=== PATIENT | male | born 1960 | race Two or more races ===

== ENCOUNTER → 2019-06-21 | Outpatient (CLI) | payer OTHER | END | disposition home or self-care (01) | LOC: LABWHC1 10:05 | PROVIDERS: ATTEND Internal Medicine Gastroenterology | DX: K51.30 Ulcerative (chronic) rectosigmoiditis without complications (principal) | CPT/HCPCS: 36415; 86480 ==

== ENCOUNTER → 2020-02-27 | Outpatient (CLI) | payer OTHER ==
[2020-02-27 10:41] LABS: Anisocytosis Slight; Basophils % (A) 0 %; Eosinophils # (A) 0.3 k/uL (0-0.7); Eosinophils % (A) 3 %; HCT 40.8 % (39.0-53.0); HGB 12.8 gm/dL (13.0-17.5); Hypochromasia Slight; Lymphocytes # (A) 1.6 k/uL (1.0-4.8); Lymphocytes % (A) 18 %; MCH 28.6 pg (25.0-35.0); MCHC 31.5 g/dL (31.0-37.0); MCV 90.9 fL (80.0-100.0); Mean Platelet Volume 7.1; Monocytes # (A) 0.6 k/uL (0-1.0); Monocytes % (A) 6 %; Neutrophils # (A) 6.3 k/uL (1.3-7.7); Neutrophils % (A) 70 %; Platelet Count 337 k/uL (150-450); RBC 4.49 m/uL (4.30-5.90); RDW 17.6 % (11.5-15.5)
[2020-02-27 13:25] LABS: Erythrocyte Sedimentation Rate 11 mm/hr (0-15)
[2020-02-27 15:30] LABS: % Iron Saturation 17.06 (15.00-50.00); African American GFR (CKD) 83.5 (60.0-200.0); Albumin 3.9 g/dL (3.80-4.90); Albumin/Globulin Ratio 1.95 (1.60-3.17); BUN/Creat Ratio 20.91 Ratio (12.00-20.00); C Reactive Protein 0.5 mg/dL (0.0-0.8); Calcium 9.4 mg/dL (8.7-10.3); Non-African American GFR(CKD) 72.1 (60.0-200.0); Potassium 4.6 mmol/L (3.5-5.5); Total Bilirubin 0.5 mg/dL (0.3-1.2); Total Protein 5.9 g/dL (6.2-8.2)
== END | disposition home or self-care (01) ==
LOC: LABWHC1 08:41
PROVIDERS: ATTEND Nurse Practitioner
DX: K51.30 Ulcerative (chronic) rectosigmoiditis without complications (principal); D50.9 Iron deficiency anemia, unspecified
CPT/HCPCS: 36415; 80053; 83540; 83550; 85025; 85652; 86140

== ENCOUNTER → 2023-05-08 | Outpatient (CLI) | payer OTHER ==
[2023-05-08 21:53] LABS: Basophils # (A) 0.05 X 10*3/uL (0.00-0.10); Basophils % (A) 0.9 %; Eosinophils # (A) 0.23 X 10*3/uL (0.04-0.35); HCT 42.5 % (39.6-50.0); HGB 14.2 d/dL (13.0-17.0); Lymphocytes # (A) 1.41 X 10*3/uL (0.90-5.00); Lymphocytes % (A) 24.7 %; MCH 31.5 pg (27.0-32.0); MCHC 33.4 d/dL (32.0-37.0); MCV 94.2 FL (80.0-97.0); Monocytes # (A) 0.56 X 10*3/uL (0.20-1.00); Monocytes % (A) 9.8 %; NRBC Per 100 WBC 0 X 10*3/uL (0.00-0.01); Neutrophils # (A) 3.44 X 10*3/uL (1.80-7.70); Neutrophils % (A) 60.1 %; Platelet Count 288 X 10*3/uL (140-440); RBC 4.51 X 10*6/uL (4.40-5.60); WBC 5.72 X 10*3/uL (4.50-10.00)
[2023-05-08 22:03] LABS: ALT 25 U/L (10-49); AST 22 U/L (14-35); Albumin 4.6 d/dL (3.8-4.9); Alkaline Phosphatase 105 U/L (41-126); BUN/Creat Ratio 15.08 Ratio (12.00-20.00); Blood Urea Nitrogen 19.6 mg/dL (9.0-27.0); Calcium 9.8 mg/dL (8.7-10.3); Carbon Dioxide 24.3 mmol/L (21.6-31.8); Chloride 108 mmol/L (96-109); Globulin 2.3 d/dL (1.6-3.3); Glucose 89 mg/dL (70-110); Potassium 4.8 mmol/L (3.5-5.5); Sodium 143 mmol/L (135-145); Total Bilirubin 0.2 mg/dL (0.3-1.2); Total Protein 6.9 d/dL (6.2-8.2)
== END | disposition home or self-care (01) ==
LOC: LABWHC1 15:21
PROVIDERS: ATTEND Internal Medicine Gastroenterology
DX: K51.30 Ulcerative (chronic) rectosigmoiditis without complications (principal)
CPT/HCPCS: 36415; 80053; 85025

== ENCOUNTER → 2023-10-24 | Outpatient (CLI) | payer OTHER ==
[2023-10-24 18:53] LABS: HCT 44.7 % (39.6-50.0); HGB 14.8 g/dL (13.0-17.0); MCH 30.1 pg (27.0-32.0); MCHC 33.1 g/dL (32.0-37.0); MCV 90.9 FL (80.0-97.0); Mean Platelet Volume 9.6 FL (9.5-12.2); NRBC Per 100 WBC 0 X 10*3/uL (0.00-0.01); Platelet Count 299 X 10*3/uL (140-440); RBC 4.92 X 10*6/uL (4.40-5.60); RDW 13.9 % (11.5-14.5)
[2023-10-24 18:54] LABS: Basophils # (A) 0.03 X 10*3/uL (0.00-0.10); Basophils % (A) 0.5 %; Eosinophils # (A) 0.11 X 10*3/uL (0.04-0.35); Eosinophils % (A) 1.9 %; Lymphocytes % (A) 29.3 %; Monocytes # (A) 0.47 X 10*3/uL (0.20-1.00); Monocytes % (A) 8.1 %; Neutrophils # (A) 3.47 X 10*3/uL (1.80-7.70); Neutrophils % (A) 59.9 %
[2023-10-24 19:09] LABS: ALT 25 U/L (10-49); AST 20 U/L (14-35); Albumin 4.4 g/dL (3.8-4.9); Albumin/Globulin Ratio 1.91 Ratio (1.60-3.17); Alkaline Phosphatase 90 U/L (41-126); Blood Urea Nitrogen 20.3 mg/dL (9.0-27.0); Calcium 9.6 mg/dL (8.7-10.3); Carbon Dioxide 23.9 mmol/L (21.6-31.8); Chloride 105 mmol/L (96-109); Globulin 2.3 g/dL (1.6-3.3); Glucose 139 mg/dL (70-110); Potassium 4.5 mmol/L (3.5-5.5); Sodium 142 mmol/L (135-145); Total Bilirubin 0.3 mg/dL (0.3-1.2); Total Protein 6.7 g/dL (6.2-8.2)
== END | disposition home or self-care (01) ==
LOC: LABWHC1 13:12
PROVIDERS: ATTEND Internal Medicine Gastroenterology
DX: K51.30 Ulcerative (chronic) rectosigmoiditis without complications (principal)
CPT/HCPCS: 36415; 80053; 85025

== ENCOUNTER → 2024-04-28 | Outpatient (CLI) | payer MEDICARE ==
[2024-04-28 16:00] LABS: ALT 34 U/L (10-49); AST 26 U/L (14-35); Albumin 4.3 g/dL (3.8-4.9); Albumin/Globulin Ratio 1.87 Ratio (1.60-3.17); Alkaline Phosphatase 119 U/L (41-126); BUN/Creat Ratio 12.29 Ratio (12.00-20.00); Blood Urea Nitrogen 17.2 mg/dL (9.0-27.0); Calcium 9.6 mg/dL (8.7-10.3); Carbon Dioxide 20.4 mmol/L (21.6-31.8); Chloride 109 mmol/L (96-109); Globulin 2.3 g/dL (1.6-3.3); Glucose 110 mg/dL (70-110); Potassium 4.8 mmol/L (3.5-5.5); Sodium 141 mmol/L (135-145); Total Bilirubin 0.2 mg/dL (0.3-1.2); Total Protein 6.6 g/dL (6.2-8.2)
[2024-04-28 16:20] LABS: HCT 46.8 % (39.6-50.0); HGB 15.6 g/dL (13.0-17.0); MCH 30.2 pg (27.0-32.0); MCHC 33.3 g/dL (32.0-37.0); MCV 90.7 FL (80.0-97.0); NRBC Per 100 WBC 0 X 10*3/uL (0.00-0.01); Platelet Count 292 X 10*3/uL (140-440); RBC 5.16 X 10*6/uL (4.40-5.60); RDW 13.4 % (11.5-14.5); WBC 5.98 X 10*3/uL (4.50-10.00)
[2024-04-28 16:21] LABS: Basophils # (A) 0.05 X 10*3/uL (0.00-0.10); Basophils % (A) 0.8 %; Eosinophils % (A) 1.7 %; Lymphocytes # (A) 1.37 X 10*3/uL (0.90-5.00); Lymphocytes % (A) 22.9 %; Monocytes # (A) 0.52 X 10*3/uL (0.20-1.00); Monocytes % (A) 8.7 %; Neutrophils % (A) 65.2 %
== END | disposition home or self-care (01) ==
LOC: LABWHC1 11:12
PROVIDERS: ATTEND Nurse Practitioner Family
DX: K51.30 Ulcerative (chronic) rectosigmoiditis without complications (principal)
CPT/HCPCS: 36415; 80053; 85025

== ENCOUNTER → 2024-05-02 | Outpatient (CLI) | payer MEDICARE ==
[~2024-05-02] MED LIST: REGADENOSON 0.4 MG/5 ML SYRINGE IV PRN
--- NOTE | 2024-05-02 10:42 | CA ---
Lexiscan Nuclear Stress Test Report Name: Sherif Crane Exam Date: 05/02/2024 09:30 Exam Location: [place] Stress Ht (in): 66 Wt (lb): 210 BSA: 2.04 Ordering Phys: Mitch Melendez MD Referring Phys: ANGELA, Technologist: Chuck Lui Age: 63 Gender: M : 1960 Procedure CPT: Indications: I20.89 OTHER FORMS OF ANGINA PECTORIS ICD-10 Codes: Patient History: CHEST PAIN, DIFFICULTY IN BREATHING, PALPITATIONS, HTN, HYPERCHOLESTEROLEMIA, FAMILY HX OF HEART DISEASE, PRIOR SMOKER, ASTHMA Medications: Meds past 24 hrs: Pretest Chest Pain: STRESS TEST Lexiscan Protocol Exercise Duration (min:sec): 01:[address] Depressions (mm): Angina Score: Mendoza Score: Resting HR (bpm): 77 Peak HR (bpm): 105 Resting BP (mmHg): 142 / 94 Peak BP (mmHg): 142 / 94 MPHR: 155 Target HR: 132 % MPHR: 68 METS: 1.0 Total Dose: Peak Dose: Atropine: Double Product: 16331 BP Response: Stress Termination: INFUSION COMPLETE Stress Symptoms: CHEST PAIN CHEST PAIN RESOLVED IN RECOVERY Stress Summary: ECG ANALYSIS Resting ECG: Normal sinus rhythm normal axis normal intervals Stress ECG: Patient was given intravenous Lexiscan as a protocol did not have chest pain or diagnostic ST segment depression CONCLUSIONS Negative stress test by EKG criteria Cardiolite portion of the stress test will be reported separately Dr. Cam Pompa MD (Electronically Signed) Final Date: 02 May 2024 10:41
--- NOTE | 2024-05-02 12:27 | NM ---
EXAMINATION TYPE: NM stress lexiscan cardiolite DATE OF EXAM: 05/02/2024 COMPARISON: NONE CLINICAL INDICATION: Male, 63 years old with history of I20.89 OTHER FORMS OF ANGINA PECTORIS; TECHNIQUE: After the intravenous administration of 9.6 mCi Tc 99m Sestamibi - Cardiolite resting SPE CT images acquired 80 minutes post injection. The patient received 0.4mg Lexiscan, 25.9 mCi Tc 99m Sestamibi - Stress images obtained [address] injection FINDINGS: Review of stress and rest SPECT images demonstrates no distinct perfusion abnormality. Small rest de fect noted apical anterior wall. Gated analysis shows normal wall motion with an estimated left ventr icular ejection fraction of 66 %. IMPRESSION: No scintigraphic evidence for reversible ischemia.
== END | disposition home or self-care (01) ==
LOC: RADNMMAIN 07:49
PROVIDERS: ATTEND Family Medicine
DX: I20.89 Other forms of angina pectoris (principal); I35.0 Nonrheumatic aortic (valve) stenosis
CPT/HCPCS: 93017; 78452; A9500; J2785

== ENCOUNTER 2024-07-15 05:53 | Inpatient (IN) | payer MEDICARE ==
[2024-07-15] MEDS: SODIUM CHLORIDE 0.9% 1,000 ML IV STA (06:22)
[2024-07-15] MEDS: KETOROLAC 15 MG/ML 1 ML VIAL IVP STA (06:23)
[2024-07-15] MEDS: ONDANSETRON 4 MG/2 ML VIAL IVP STA (06:23)
[2024-07-15] MEDS: HYDROmorphone 1 MG/ML 1 ML SYRINGE IVP STA ×2 (06:25→09:04)
--- NOTE | 2024-07-15 06:44 | ED ---
Abdominal Pain HPI - General Chief Complaint: Abdominal Pain Stated Complaint: Abdominal Pain, NVD Time Seen by Provider: 07/15/24 05:59 Source: patient, EMS, RN notes reviewed Mode of arrival: EMS Limitations: no limitations - History of Present Illness Initial Comments: This is a 63-year-old male who presents to the emergency department for abdominal pain. Reports mid to lower abdominal pain with nausea and vomiting beginning yesterday. He has some radiation of pain into the back. Reports some difficulty with urination. Denies any diarrhea or constipation. He had similar pain a year ago and was diagnosed with pancreatitis at [facility]. States that they incidentally found a blood clot near his pancreas at that time. States that he had been fine since then up until now. Unsure if he is experiencing the same thing or not. Denies any fevers or chills. He was given Zofran by EMS en route with some improvement in nausea, but states that the pain is still severe. MD Complaint: abdominal pain - Related Data Home Medications Medication Instructions Recorded Confirmed Albuterol Sulfate [Albuterol 2 puff INHALATION RT-BID 07/15/24 07/15/24 Sulfate Hfa] Ascorbic Acid [Vitamin C] 500 mg PO DAILY 07/15/24 07/15/24 Aspirin [Blair Aspirin EC] 81 mg PO DAILY 07/15/24 07/15/24 Famotidine [Pepcid] 20 - 40 mg PO DAILY 07/15/24 07/15/24 Losartan [Cozaar] 25 mg PO DAILY 07/15/24 07/15/24 Magnesium Oxide [Magnesium] 500 mg PO DAILY 07/15/24 07/15/24 Multivitamins, Thera [Multivitamin 1 tab PO DAILY 07/15/24 07/15/24 (formulary)] Rosuvastatin [Crestor] 10 mg PO DAILY 07/15/24 07/15/24 azaTHIOprine [Imuran] 100 mg PO DAILY 07/15/24 07/15/24 Allergies Allergy/AdvReac Type Severity Reaction Status Date / Time No Known Allergies Allergy Unverified 05/02/24 08:50 Review of Systems ROS Statement: Those systems with pertinent positive or pertinent negative responses have been documented in the HPI. ROS Other: All systems not noted in ROS Statement are negative. Past Medical History Past Medical History: Asthma, Hypertension History of Any Multi-Drug Resistant Organisms: None Reported Past Psychological History: No Psychological Hx Reported Smoking Status: Former smoker Past Alcohol Use History: None Reported Past Drug Use History: None Reported General Exam Limitations: no limitations General appearance: alert, in no apparent distress Head exam: Present: atraumatic, normocephalic, normal inspection Respiratory exam: Present: normal lung sounds bilaterally. Absent: respiratory distress, wheezes, rales, rhonchi, stridor Cardiovascular Exam: Present: regular rate, normal rhythm, normal heart sounds. Absent: systolic murmur, diastolic murmur, rubs, gallop, clicks GI/Abdominal exam: Present: soft, tenderness (diffuse), normal bowel sounds. Absent: distended Neurological exam: Present: alert, oriented X3, CN II-XII intact Psychiatric exam: Present: normal affect, normal mood Skin exam: Present: warm, dry, intact, normal color. Absent: rash Course Vital Signs 07/15/24 07/15/24 07/15/24 05:56 07:04 09:03 Temperature 98.7 F Pulse Rate 78 95 98 Respiratory 18 18 20 Rate Blood Pressure 172/137 158/97 157/101 O2 Sat by Pulse 98 96 94 L Oximetry Medical Decision Making - Medical Decision Making This is a 63 year old male who presents to the emergency department for abdominal pain. Was pt. sent in by a medical professional or institution? @ -No Did you speak to anyone other than the patient for history? @ -No Did you review nursing and triage notes? @ -Yes, and I agree, it is accurate with regards to the patient's symptoms. Were old charts reviewed? @ -No Differential Diagnosis? @ -Differential Abdominal Pain Men: Appendicitis, cholecystitis, diverticulosis, ischemic bowel, pancreatitis, hepatitis, UTI, gastroenteritis, AAA, incarcerated hernia, bowel obstruction, constipation, inflammatory bowel, hepatitis, peptic ulcer disease, splenic infarction, perforated viscus, testicular torsion, this is not meant to be an all-inclusive list EKG interpreted by me (3pts min.)? @ -EKG interpreted by me demonstrating the following: Sinus rhythm. Ventricular rate 77 bpm, ID interval 187 ms, QRS duration 89 ms, QTc 389 ms. X-rays interpreted by me (1pt min.)? @ -Not obtained CT interpreted by me (1pt min.)? @ -CT scan of the abdomen and pelvis obtained. My interpretation identifies edema of the pancreas. U/S interpreted by me (1pt. min.)? @ -Gallbladder ultrasound obtained. My interpretation identifies cholelithiasis. What testing was considered but not performed? (CT, X-rays, U/S, labs)? Why? @ -None What meds were considered but not given? Why? @ -None Did you discuss the management of the patient with other professionals? @ -Yes, Dr. Melendez, who accepts the patient for admission Did you reconcile home meds? @ -Yes Was smoking cessation discussed for >3mins.? @ -No Was critical care preformed (if so, how long)? @ -No Were there social determinants of health that impacted care today? How? (Homelessness, low income, unemployed, alcoholism, drug addiction, transportation, low edu. Level, literacy, decrease access to med. care, [facility], rehab)? @ -No Was there de-escalation of care discussed even if they declined? (Discuss DNR or withdrawal of care, Hospice)? @ -No What co-morbidities impacted this encounter? (DM, HTN, Smoking, COPD, CAD, Cancer, CVA, Hep., AIDS, mental health diagnosis, sleep apnea, morbid obesity)? @ -HTN Was patient admitted / discharged? @ -Admitted. Lab work demonstrates elevated LFTs with a bilirubin of 1.7, AST of 371, ALT of 425, and AST of 347. Lab work also consistent with pancreatitis [place] amyl[place] [address] [place] [address] scan of the abdomen and pelvis demonstrates edema of the pancreas with peripancreatic stranding compatible with acute pancreatitis. There is also a focal calcification within the transverse duodenum that could reflect a recently passed gallstone. Due to possibility for gallstone pancreatitis, gallbladder ultrasound was obtained for further evaluation. Gallbladder ultrasound demonstrates cholelithiasis with hepatic steatosis. The common bile duct could not be measured. There is no gallbladder wall thickening or pericholecystic fluid noted. Presentation concerning for gallstone pancreatitis at this point. Patient admitted to medicine for gallstone pancreatitis. Consult placed for GI and general surgery. Maintenance fluids initiated and patient kept NPO. Case discussed with ED attending Dr. Baer. Undiagnosed new problem with uncertain prognosis? @ -None Drug Therapy requiring intensive monitoring for toxicity (Heparin, Nitro, Insulin, Cardizem)? @ -None Were any procedures done? @ -None Diagnosis/symptom? @ -Gallstone pancreatitis Acute, or Chronic, or Acute on Chronic? @ -Acute Uncomplicated (without systemic symptoms) or Complicated (systemic symptoms)? @ -Complicated Side effects of treatment? @ -None Exacerbation, Progression, or Severe Exacerbation] @ -Not applicable Poses a threat to life or bodily function? @ -Yes, can become life-threatening - Lab Data Result diagrams: 07/15/24 06:38 07/15/24 06:38 Lab Results 07/15/24 07/15/24 07/15/24 Range/Units 06:38 06:38 06:38 WBC 9.6 (3.8-10.6) k/uL RBC 4.91 (4.30-5.90) m/uL Hgb 15.1 (13.0-17.5) gm/dL Hct 45.1 (39.0-53.0) % MCV 91.9 (80.0-100.0) fL MCH 30.8 (25.0-35.0) pg MCHC 33.5 (31.0-37.0) g/dL RDW 15.7 H (11.5-15.5) % Plt Count 307 (150-450) k/uL MPV 7.5 Neutrophils % 90 % Lymphocytes % 5 % Monocytes % 3 % Eosinophils % 0 % Basophils % 0 % Neutrophils # 8.7 H (1.3-7.7) k/uL Lymphocytes # 0.5 L (1.0-4.8) k/uL Monocytes # 0.3 (0-1.0) k/uL Eosinophils # 0.0 (0-0.7) k/uL Basophils # 0.0 (0-0.2) k/uL Sodium 137 (137-145) mmol/L Potassium 4.7 (3.5-5.1) mmol/L Chloride 109 H (98-107) mmol/L Carbon Dioxide 21 L (22-30) mmol/L Anion Gap 7 mmol/L BUN 22 H (9-20) mg/dL Creatinine 0.99 (0.66-1.25) mg/dL Est GFR (CKD-EPI)AfAm >90 (>60 ml/min/1.73 sqM) Est GFR (CKD-EPI)NonAf 80 (>60 ml/min/1.73 sqM) Glucose 180 H (74-99) mg/dL Plasma Lactic Acid Srikanth 1.3 (0.7-2.0) mmol/L Calcium 9.4 (8.4-10.2) mg/dL Magnesium 1.8 (1.6-2.3) mg/dL Total Bilirubin 1.7 H (0.2-1.3) mg/dL AST 371 H (17-59) U/L ALT 425 H (4-49) U/L Alkaline Phosphatase 347 H (38-126) U/L Total Protein 6.8 (6.3-8.2) g/dL Albumin 4.1 (3.5-5.0) g/dL Amylase 2289 H* (30-110) U/L Lipase 44561 H (23-300) U/L Urine Color Urine Appearance (Clear) Urine pH (5.0-8.0) Ur Specific [place] (1.001-1.035) Urine Protein (Negative) Urine Glucose (UA) (Negative) Urine Ketones (Negative) Urine Blood (Negative) Urine Nitrite (Negative) Urine Bilirubin (Negative) Urine Urobilinogen (<2.0) mg/dL Ur Leukocyte Esterase (Negative) 07/15/24 Range/Units 08:34 WBC (3.8-10.6) k/uL RBC (4.30-5.90) m/uL Hgb (13.0-17.5) gm/dL Hct (39.0-53.0) % MCV (80.0-100.0) fL MCH (25.0-35.0) pg MCHC (31.0-37.0) g/dL RDW (11.5-15.5) % Plt Count (150-450) k/uL MPV Neutrophils % % Lymphocytes % % Monocytes % % Eosinophils % % Basophils % % Neutrophils # (1.3-7.7) k/uL Lymphocytes # (1.0-4.8) k/uL Monocytes # (0-1.0) k/uL Eosinophils # (0-0.7) k/uL Basophils # (0-0.2) k/uL Sodium (137-145) mmol/L Potassium (3.5-5.1) mmol/L Chloride (98-107) mmol/L Carbon Dioxide (22-30) mmol/L Anion Gap mmol/L BUN (9-20) mg/dL Creatinine (0.66-1.25) mg/dL Est GFR (CKD-EPI)AfAm (>60 ml/min/1.73 sqM) Est GFR (CKD-EPI)NonAf (>60 ml/min/1.73 sqM) Glucose (74-99) mg/dL Plasma Lactic Acid Srikanth (0.7-2.0) mmol/L Calcium (8.4-10.2) mg/dL Magnesium (1.6-2.3) mg/dL Total Bilirubin (0.2-1.3) mg/dL AST (17-59) U/L ALT (4-49) U/L Alkaline Phosphatase (38-126) U/L Total Protein (6.3-8.2) g/dL Albumin (3.5-5.0) g/dL Amylase (30-110) U/L Lipase (23-300) U/L Urine Color Yellow Urine Appearance Clear (Clear) Urine pH 6.5 (5.0-8.0) Ur Specific [place] 1.037 H (1.001-1.035) Urine Protein Trace H (Negative) Urine Glucose (UA) Negative (Negative) Urine Ketones 1+ H (Negative) Urine Blood Negative (Negative) Urine Nitrite Negative (Negative) Urine Bilirubin Negative (Negative) Urine Urobilinogen <2.0 (<2.0) mg/dL Ur Leukocyte Esterase Negative (Negative) - Radiology Data Radiology results: report reviewed, image reviewed Disposition Clinical Impression: Gallstone pancreatitis Dis[facility] Referrals: Mitch Melendez MD [Primary Care Provider] - 1-2 days
[2024-07-15 06:53] LABS: Basophils % (A) 0 %; Eosinophils % (A) 0 %; HCT 45.1 % (39.0-53.0); HGB 15.1 gm/dL (13.0-17.5); Lymphocytes # (A) 0.5 k/uL (1.0-4.8); Lymphocytes % (A) 5 %; MCH 30.8 pg (25.0-35.0); MCHC 33.5 g/dL (31.0-37.0); MCV 91.9 fL (80.0-100.0); Mean Platelet Volume 7.5; Monocytes # (A) 0.3 k/uL (0-1.0); Monocytes % (A) 3 %; Neutrophils # (A) 8.7 k/uL (1.3-7.7); Neutrophils % (A) 90 %; Platelet Count 307 k/uL (150-450); RBC 4.91 m/uL (4.30-5.90); RDW 15.7 % (11.5-15.5); WBC 9.6 k/uL (3.8-10.6)
[2024-07-15 07:14] LABS: ALT 425 U/L (4-49); African American GFR (CKD) >90 (>60 ml/min/1.73 sqM); Albumin 4.1 g/dL (3.5-5.0); Anion Gap 7 mmol/L; Blood Urea Nitrogen 22 mg/dL (9-20); Calcium 9.4 mg/dL (8.4-10.2); Carbon Dioxide 21 mmol/L (22-30); Chloride 109 mmol/L (98-107); Glucose 180 mg/dL (74-99); Magnesium 1.8 mg/dL (1.6-2.3); Non-African American GFR(CKD) 80 (>60 ml/min/1.73 sqM); Sodium 137 mmol/L (137-145); Total Bilirubin 1.7 mg/dL (0.2-1.3); Total Protein 6.8 g/dL (6.3-8.2)
[2024-07-15 07:50] LABS: AST 371 U/L (17-59); Alkaline Phosphatase 347 U/L (38-126); Amylase 2289 U/L (30-110); Potassium 4.7 mmol/L (3.5-5.1)
[2024-07-15 08:01] LABS: Lipase 16378 U/L (23-300)
--- NOTE | 2024-07-15 08:42 | CT ---
EXAMINATION TYPE: CT abdomen pelvis w con DATE OF EXAM: 07/15/2024 COMPARISON: None HISTORY: pain, nausea and vomiting, pt states history of pancreatitis CT DLP: 1433.7 mGycm CONTRAST: CT scan of the abdomen and pelvis is performed without Oral Contrast and with IV Contrast, patient in jected with 100 mL of Isovue 370. FINDINGS: LUNG BASES-: No visible nodule. No infiltrate. LIVER/GB: Small noncalcified gallstones. Hepatic steatosis. No space occupying hepatic lesion. Sumeet iary tree is of normal caliber. PANCREAS: There is edema of the pancreas with peripancreatic stranding compatible with acute pancreat itis. There is focal calcification within the transverse duodenum seen on image 42 which could reflec t a recently passed calcified gallstone. No evidence for pseudocyst. SPLEEN: No splenic enlargement. No lesion seen. ADRENALS: No nodule. No thickening. KIDNEYS/BLADDER: No hydronephrosis. No nephrolithiasis. No distinct renal mass. Urinary bladder g rossly unremarkable. BOWEL: Normal appendix. Normal bowel caliber. No inflammation. GENITAL ORGANS: No gross abnormality. LYMPH NODES: No greater than 1cm abdominal or pelvic lymph nodes are appreciated. AORTA: No significant abnormality. OSSEOUS STRUCTURES: No significant abnormality is seen. OTHER: No significant additional abnormality is seen. IMPRESSION: 1. There is edema of the pancreas with peripancreatic stranding compatible with acute pancreatitis. T here is focal calcification within the transverse duodenum seen on image 42 which could reflect a rec ently passed calcified gallstone. [facility], , 07/15/2024 8:39 AM
[2024-07-15 08:47] LABS: Appearance,Urine Clear (Clear); Bilirubin,Urine Negative (Negative); Blood,Urine Negative (Negative); Color,Urine Yellow; Glucose,Urine (UA) Negative (Negative); Ketones,Urine 1+ (Negative); Leukocyte Esterase,Urine Negative (Negative); Nitrite,Urine Negative (Negative); PH, Urine 6.5 (5.0-8.0); Protein,Urine Trace (Negative); Specific Gravity,Urine 1.037 (1.001-1.035); Urobilinogen,Urine <2.0 mg/dL (<2.0)
--- NOTE | 2024-07-15 09:08 | US ---
EXAMINATION TYPE: US gallbladder DATE OF EXAM: 07/15/2024 COMPARISON: CT 07/15/2024 CLINICAL INDICATION: Male, 63 years old with history of Abdominal pain, pancreatitis; RUQ pain; Hx pa ncreatitis; patient denies any other signs, symptoms, or relevant history TECHNIQUE: Grayscale and color Doppler imaging of the right upper quadrant was performed. FINDINGS: EXAM MEASUREMENTS: Liver Length: 14.7 cm Gallbladder Wall: 0.2 cm CBD: Unable to identify cm Right Kidney: 11.7 x 6.2 x 5.5 cm PCTS NOTES: Pancreas: Obscured by bowel gas Liver: Difficult visualization - attenuating Gallbladder: Multiple stones seen Evidence for sonographic Munoz's sign: Yes CBD: Unable to identify Right Kidney: Limited visualization - WNL as visualized. IMPRESSION: Cholelithiasis with hepatic steatosis. [facility], , 07/15/2024 9:06 AM
[2024-07-15] MEDS ORDERED: ACETAMINOPHEN TAB 325 MG TAB PO PRN (09:14)
[2024-07-15] MEDS ORDERED: NALOXONE 0.4 MG/ML 1 ML VIAL IV PRN (09:14)
[2024-07-15] MEDS: SODIUM CHLORIDE 0.9% 1,000 ML IV SCH (10:44)
[2024-07-15] MEDS: HYDROmorphone 1 MG/ML 1 ML SYRINGE IVP PRN (12:27)
--- NOTE | 2024-07-15 14:15 | P.GSCN ---
History of Present Illness Consult date: 07/15/24 History of present illness: CHIEF COMPLAINT: Abdominal pain HISTORY OF PRESENT ILLNESS: This is a 63-year-old male who presented the hospital with complaints of pain across the upper abdomen that wraps around to his back that started yesterday around 4 PM. Prior to that he had eaten hamburger helper meal. He reports having nausea and vomiting. He does report having a prior history of pancreatitis about a year ago. But this pain does feel worse. He also reports with that episode of pancreatitis he was found to have a blood clot near the pancreas and he had been on anticoagulation until March when the radiator fitter discontinued it. Patient denies any prior abdominal surgeries. Denies any history of alcohol use. Patient had gallbladder ultrasound completed that reported cholelithiasis and a positive Munoz sign. CAT scan had reported pancreatitis and possible recently passed gallstone. Patient had elevated LFTs and lipase. He was seen by GI service and scheduled for ERCP tomorrow to evaluate for choledocholithiasis. PAST MEDICAL HISTORY: Pancreatitis, possible portal venous thrombus now off anticoagulation, asthma, hypertension, reports his heart valve sticks and was recently seen by cardiology over the last 2 to 3 months. Patient reports no new changes. PAST SURGICAL HISTORY: None MEDICATIONS: See below ALLERGIES: See below SOCIAL HISTORY: No illicit drug use. Former smoker denies alcohol use REVIEW OF SYSTEMS: CONSTITUTIONAL: Denies fever or chills. HEENT: Denies blurred vision, vision changes, or eye pain. Denies hemoptysis CARDIOVASCULAR: Denies chest pain or pressure. RESPIRATORY: No shortness of breath. GASTROINTESTINAL: See HPI for pertinent findings HEMATOLOGIC: Denies bleeding disorders. GENITOURINARY: Denies any blood in urine or increased urinary frequency. SKIN: Denies pruitis. Denies rash. PHYSICAL EXAM: VITAL SIGNS: Reviewed GENERAL: Well-developed in no acute distress. HEENT: No sclera icterus. Extraocular movements grossly intact. Moist buccal mucosa. Head is atraumatic, normocephalic. No nasal drainage. ABDOMEN: Soft. Nondistended. Tenderness to palpation in the epigastric and right upper quadrant area NEUROLOGIC: Alert and oriented. Cranial nerves II through XII grossly intact. LABORATORY DATA: WBC 9.6 Hgb 15.1 platelets 307 Sodium 137 potassium 4.7 creatinine 0.99 Total bili 1.7 AST 371 ALT 425 alk phos 347 Lipase 16,000 IMAGING: Gallbladder ultrasound and CT scan findings as stated above ASSESSMENT: 1. Gallstone pancreatitis 2. Possible choledocholithiasis with elevated LFTs and total bilirubin PLAN: -Patient scheduled for ERCP tomorrow with GI service -Repeat labs in a.m. -Continue IV fluids -Continue supportive care -Keep patient n.p.o. Physician Jalousies Installer note has been reviewed by physician. Signing provider agrees with the documented findings, assessment, and plan of care. Attestation Patient seen and examined at bedside in evening 07/15/2024. Presented with complaint of abdominal pain. This was in the right upper quadrant and patient found to have gallstone pancreatitis. There is possibility of choledocholithiasis and patient to be evaluated by GI service. Initially plan for ERCP tomorrow. Plan for repeat labs in morning. Continue supportive care. Patient will require cholecystectomy prior to discharge. Marcos Lanier DO Past Medical History Past Medical History: Asthma, Hypertension History of Any Multi-Drug Resistant Organisms: None Reported Past Psychological History: No Psychological Hx Reported Smoking Status: Former smoker Past Alcohol Use History: None Reported Past Drug Use History: None Reported Medications and Allergies Home Medications Medication Instructions Recorded Confirmed Type Albuterol Sulfate [Albuterol 2 puff INHALATION RT-BID 07/15/24 07/15/24 History Sulfate Hfa] Ascorbic Acid [Vitamin C] 500 mg PO DAILY 07/15/24 07/15/24 History Aspirin [Levering Aspirin EC] 81 mg PO DAILY 07/15/24 07/15/24 History Famotidine [Pepcid] 20 - 40 mg PO DAILY 07/15/24 07/15/24 History Losartan [Cozaar] 25 mg PO DAILY 07/15/24 07/15/24 History Magnesium Oxide [Magnesium] 500 mg PO DAILY 07/15/24 07/15/24 History Multivitamins, Thera [Multivitamin 1 tab PO DAILY 07/15/24 07/15/24 History (formulary)] Rosuvastatin [Crestor] 10 mg PO DAILY 07/15/24 07/15/24 History azaTHIOprine [Imuran] 100 mg PO DAILY 07/15/24 07/15/24 History Allergies Allergy/AdvReac Type Severity Reaction Status Date / Time No Known Allergies Allergy Verified 07/15/24 23:17 Surgical - Exam Osteopathic Statement: *. No significant issues noted on an osteopathic structural exam other than those noted in the History and Physical/Consult. Vital Signs Temp Pulse Resp BP Pulse Ox 98.7 F 78 18 172/137 98 07/15/24 05:56 07/15/24 05:56 07/15/24 05:56 07/15/24 05:56 07/15/24 05:56 Results - Labs 07/16/24 06:10 07/16/24 05:48 Abnormal Lab Results - Last 24 Hours (Table) 07/15/24 07/15/24 07/15/24 Range/Units 06:38 06:38 08:34 RDW 15.7 H (11.5-15.5) % Neutrophils # 8.7 H (1.3-7.7) k/uL Lymphocytes # 0.5 L (1.0-4.8) k/uL Chloride 109 H (98-107) mmol/L Carbon Dioxide 21 L (22-30) mmol/L BUN 22 H (9-20) mg/dL Glucose 180 H (74-99) mg/dL Total Bilirubin 1.7 H (0.2-1.3) mg/dL AST 371 H (17-59) U/L ALT 425 H (4-49) U/L Alkaline Phosphatase 347 H (38-126) U/L Amylase 2289 H* (30-110) U/L Lipase 15051 H (23-300) U/L Ur Specific [place] 1.037 H (1.001-1.035) Urine Protein Trace H (Negative) Urine Ketones 1+ H (Negative) Diabetes panel 07/15/24 Range/Units 06:38 Sodium 137 (137-145) mmol/L Potassium 4.7 (3.5-5.1) mmol/L Chloride 109 H (98-107) mmol/L Carbon Dioxide 21 L (22-30) mmol/L BUN 22 H (9-20) mg/dL Creatinine 0.99 (0.66-1.25) mg/dL Glucose 180 H (74-99) mg/dL Calcium 9.4 (8.4-10.2) mg/dL AST 371 H (17-59) U/L ALT 425 H (4-49) U/L Alkaline Phosphatase 347 H (38-126) U/L Total Protein 6.8 (6.3-8.2) g/dL Albumin 4.1 (3.5-5.0) g/dL Calcium panel 07/15/24 Range/Units 06:38 Calcium 9.4 (8.4-10.2) mg/dL Albumin 4.1 (3.5-5.0) g/dL Pituitary panel 07/15/24 Range/Units 06:38 Sodium 137 (137-145) mmol/L Potassium 4.7 (3.5-5.1) mmol/L Chloride 109 H (98-107) mmol/L Carbon Dioxide 21 L (22-30) mmol/L BUN 22 H (9-20) mg/dL Creatinine 0.99 (0.66-1.25) mg/dL Glucose 180 H (74-99) mg/dL Calcium 9.4 (8.4-10.2) mg/dL Adrenal panel 07/15/24 Range/Units 06:38 Sodium 137 (137-145) mmol/L Potassium 4.7 (3.5-5.1) mmol/L Chloride 109 H (98-107) mmol/L Carbon Dioxide 21 L (22-30) mmol/L BUN 22 H (9-20) mg/dL Creatinine 0.99 (0.66-1.25) mg/dL Glucose 180 H (74-99) mg/dL Calcium 9.4 (8.4-10.2) mg/dL Total Bilirubin 1.7 H (0.2-1.3) mg/dL AST 371 H (17-59) U/L ALT 425 H (4-49) U/L Alkaline Phosphatase 347 H (38-126) U/L Total Protein 6.8 (6.3-8.2) g/dL Albumin 4.1 (3.5-5.0) g/dL
--- NOTE | 2024-07-15 15:27 | P.CONS ---
History of Present Illness - Reason for Consult Consult date: 07/15/24 Gallstone pancreatitis Requesting physician: Phoebe Correa - Chief Complaint abdominal pain - History of Present Illness This a pleasant 63-year-old man known to gastroenterology services and Dr. Alvarez for history of colitis who is presenting to the emergency department with acute onset of abdominal pain associated with nausea and vomiting that started at 4 PM yesterday. Patient also states he has a history of pancreatitis about a year ago unclear etiology. He denies any fevers or chills, no bodyaches however states abdominal pain is still quite significant. States ulcerative colitis is well controlled and is currently on Imuran. Patient had elevated amylase and lipase 2289 and 06229 respectively with elevated LFTs. Gastroenterology was consulted for gallstone pancreatitis. Patient is without any leukocytosis, WBC 9.6 hemoglobin 15 platelet count 307,000 sodium 137 potassium 4.7 BUN 22 creatinine 0.9 total bilirubin 1.7 AST 371 ALT 425 alkaline phosphatase 347 amylase 2289 lipase 16 378 Review of Systems REVIEW OF SYSTEMS: CARDIOPULMONARY: No chest pain or shortness of breath. Gastrointestinal: Abdominal pain, mostly in epigastric region associated with nausea and vomiting. No hematemesis, coffee-ground emesis. No rectal bleeding, or melena. GENITOURINARY: No dysuria or hematuria. MUSCULOSKELETAL: Reports normal range of motion., Joint pain. SKIN: No rashes. No jaundice. ENDOCRINE: No chills, fevers. No excessive weight gain or loss. No polydipsia or polyuria. PSYCHIATRIC: Unremarkable. NEUROLOGY: No change in mental status. Denies dizziness, headache. ENT: Vision unremarkable. CONSTITUTIONAL: No recent weight loss. No fever, chills, night sweats. Past Medical History Past Medical History: Asthma, Hypertension History of Any Multi-Drug Resistant Organisms: None Reported Past Psychological History: No Psychological Hx Reported Smoking Status: Former smoker Past Alcohol Use History: None Reported Past Drug Use History: None Reported Medications and Allergies Home Medications Medication Instructions Recorded Confirmed Type Albuterol Sulfate [Albuterol 2 puff INHALATION RT-BID 07/15/24 07/15/24 History Sulfate Hfa] Ascorbic Acid [Vitamin C] 500 mg PO DAILY 07/15/24 07/15/24 History Aspirin [[place] Aspirin EC] 81 mg PO DAILY 07/15/24 07/15/24 History Famotidine [Pepcid] 20 - 40 mg PO DAILY 07/15/24 07/15/24 History Losartan [Cozaar] 25 mg PO DAILY 07/15/24 07/15/24 History Magnesium Oxide [Magnesium] 500 mg PO DAILY 07/15/24 07/15/24 History Multivitamins, Thera [Multivitamin 1 tab PO DAILY 07/15/24 07/15/24 History (formulary)] Rosuvastatin [Crestor] 10 mg PO DAILY 07/15/24 07/15/24 History azaTHIOprine [Imuran] 100 mg PO DAILY 07/15/24 07/15/24 History Allergies Allergy/AdvReac Type Severity Reaction Status Date / Time No Known Allergies Allergy Unverified 05/02/24 08:50 Physical Exam Vitals: Vital Signs Temp Pulse Resp BP Pulse Ox 07/15/24 09:03 98 20 157/101 94 L 07/15/24 07:04 95 18 158/97 96 07/15/24 05:56 98.7 F 78 18 172/137 98 Intake and Output 07/14/24 07/15/24 07/15/24 22:59 06:59 14:59 Other: Weight 96.162 kg General appearance: The patient is alert, oriented, appears in no acute distress. HET: Head is normocephalic and atraumatic. Conjunctiva pink. Sclera anicteric. Neck: Supple without lymphadenopathy. Trachea midline. Heart: Regular. Lungs: Equal expansion, normal respiratory effort. Abdomen: Soft, right upper quadrant and epigastric tenderness,, nondistended. Skin: No rashes. No jaundice. Extremities: Normal skin color and turgor. No pedal edema. Neurological: No focal deficits. Alert and oriented x3. Results CBC & Chem 7: 07/15/24 06:38 07/15/24 06:38 Labs: Abnormal Lab Results - Last 24 Hours (Table) 07/15/24 07/15/24 07/15/24 Range/Units 06:38 06:38 08:34 RDW 15.7 H (11.5-15.5) % Neutrophils # 8.7 H (1.3-7.7) k/uL Lymphocytes # 0.5 L (1.0-4.8) k/uL Chloride 109 H (98-107) mmol/L Carbon Dioxide 21 L (22-30) mmol/L BUN 22 H (9-20) mg/dL Glucose 180 H (74-99) mg/dL Total Bilirubin 1.7 H (0.2-1.3) mg/dL AST 371 H (17-59) U/L ALT 425 H (4-49) U/L Alkaline Phosphatase 347 H (38-126) U/L Amylase 2289 H* (30-110) U/L Lipase 95893 H (23-300) U/L Ur Specific [place] 1.037 H (1.001-1.035) Urine Protein Trace H (Negative) Urine Ketones 1+ H (Negative) Comments: Gallbladder ultrasound reports cholelithiasis with hepatic steatosis CBD unable to be identified CT abdomen pelvis with contrast reports edema of the pancreas with peripancreatic stranding compatible with acute pancreatitis. Focal calcification within the transverse duodenum seen on image 42 which could reflect a recently passed calcified gallstone. Small noncalcified gallstones reported in gallbladder with hepatic steatosis. Biliary tree of normal caliber. Assessment and Plan (1) Gallstone pancreatitis Narrative/Plan: 63-year-old male presenting with acute onset abdominal pain in the epigastric and right upper quadrant region associated with nausea vomiting, cholelithiasis on CT and call bladder ultrasound with elevated LFTs and elevated amylase and lipase all consistent with a gallstone pancreatitis. LFTs in a cholestatic pattern could be seen in setting of choledocholithiasis. Patient is tentatively scheduled for possible ERCP tomorrow, however will reevaluate in morning once labs are back. Current Visit: Yes Status: Acute Code(s): K85.10 - BILIARY ACUTE PANCREATITIS WITHOUT NECROSIS OR INFECTION SNOMED Code(s): 01401531 (2) Abdominal pain Current Visit: Yes Status: Acute Code(s): R10.9 - UNSPECIFIED ABDOMINAL PAIN SNOMED Code(s): 57272606 (3) Ulcerative colitis Current Visit: Yes Status: Acute Code(s): K51.90 - ULCERATIVE COLITIS, UNSP ECIFIED, WITHOUT COMPLICATIONS SNOMED Code(s): 89654777 (4) Transaminitis Current Visit: Yes Status: Acute Code(s): R74.01 - ELEVATION OF LEVELS OF LIVER TRANSAMINASE LEVELS SNOMED Code(s): 943029216 (5) Cholelithiasis Current Visit: Yes Status: Acute Code(s): K80.20 - CALCULUS OF GALLBLADDER W/O CHOLECYSTITIS W/O OBSTRUCTION SNOMED Code(s): 559813035 Plan: 1. Continue symptomatic and supportive care 2. Aggressive IV hydration 3. Pain medication as needed 4. Antiemetics as needed 5. Protonix 40 mg daily for GI prophylaxis 6. Repeat labs in the morning 7. Patient tentatively scheduled for ERCP tomorrow however will reevaluate in the morning 8. General surgery on consultation, appreciate their recommendations Thank you for this consultation, we will continue to follow. Dr. Sasha Popma I agree with the dictator's note, documented as a scribe by Shea Willingham.
[2024-07-15 16:20] LABS: INR 0.95 sec (0.93-1.11); Prothrombin Time 10.3 sec (9.9-11.9)
[2024-07-15] MEDS: ALBUTEROL NEBULIZED 2.5 MG/3 ML INHALATION SCH (20:16)
[2024-07-15] MEDS: HYDROmorphone 0.5 MG/0.5 ML SYRINGE IVP PRN (21:27)
[2024-07-15] MEDS: ONDANSETRON 4 MG/2 ML VIAL IVP PRN (21:28)
[2024-07-15] MEDS: LOSARTAN 25 MG TAB PO STA (22:19)
[2024-07-16] MEDS: PANTOPRAZOLE 40 MG/10 ML VIAL IV SCH (08:11)
[2024-07-16] MEDS: MULTIVITAMINS, THERA 1 EACH TAB PO SCH (08:12)
[2024-07-16] MEDS: FAMOTIDINE 20 MG TAB PO SCH (08:12)
[2024-07-16] MEDS: ASCORBIC ACID 500 MG TAB PO SCH (08:12)
[2024-07-16] MEDS: azaTHIOprine 50 MG TAB PO SCH (08:12)
[2024-07-16] MEDS: LOSARTAN 25 MG TAB PO SCH (08:12)
[2024-07-16] MEDS: MAGNESIUM OXIDE 400 MG TAB PO SCH (08:12)
[2024-07-16] MEDS: ATORVASTATIN 20 MG TAB PO SCH (08:20)
[2024-07-16] MEDS ORDERED: NON FORMULARY DRUG (Aspirin [St. Joseph Aspirin Ec] 81 MG Tab) PO SCH (09:00)
--- NOTE | 2024-07-16 09:44 | P.CRDCN ---
History of Present Illness History of present illness: HISTORY OF PRESENT ILLNESS: This is a 63-year-old male with a past medical history significant for pancreatitis, portal vein thrombosis previously on Eliquis, hypertension, and hyperlipidemia. Patient follows in the office with Dr. Georges. We have been asked to see the patient in consultation for cardiac risk stratification. Patient examined at the bedside. Patient presented to the hospital with a chief complaint of abdominal pain. Patient states his symptoms were similar to last year when he had an episode of pancreatitis. Patient denies any chest pain or pressure. He currently denies any shortness of breath. He does report he has been having some shortness of breath recently and was supposed to have some pulmonary testing outpatient performed today. Patient is scheduled to undergo ERCP with GI today. Patient also reports he is scheduled for a cystectomy at the end of the week. Patient reports he was previously on Eliquis for a history of portal vein thrombosis. He states this was discontinued in March by Dr. Taveras. DIAGNOSTICS: - EKG reveals sinus mechanism with no signs of acute ischemia. - Laboratory data: WBC 9.6. Hemoglobin 15.1. Platelet count 307. Sodium 137. Potassium 4.7. BUN 22. Creatinine 0.99. Magnesium 1.8. AST 371. ALT 425. Bilirubin 1.7. Amylase 2289. Lipase 16,378. - Current home cardiac medications include aspirin 81 mg daily, losartan 25 mg daily, rosuvastatin 10 mg daily - Patient underwent Lexiscan stress test in April 2024 which was negative for ischemia REVIEW OF SYSTEMS: At the time of my exam: CONSTITUTIONAL: Denies fever or chills. HEENT: Denies blurred vision, vision changes, or eye pain. Denies hemoptysis CARDIOVASCULAR: Denies chest pain. Denies orthopnea. Denies PND. Denies palpitations RESPIRATORY: Denies shortness of breath. GASTROINTESTINAL: Reports abdominal pain. HEMATOLOGIC: Denies bleeding disorders. GENITOURINARY: Denies any blood in urine. SKIN: Denies pruitis. Denies rash. PHYSICAL EXAM: VITAL SIGNS: Reviewed. GENERAL: Well-developed in no acute distress. HEENT: Head is normocephalic. Pupils are equal, round. Sclerae anicteric. Mucous membranes of the mouth are moist. Neck supple. No JVD or thyromegaly LUNGS: Respirations even and unlabored. Lungs essentially clear to auscultation bilaterally. HEART: Regular rate and rhythm. S1 and S2 heard. Systolic murmur noted. ABDOMEN: Soft. Nondistended. Tenderness with palpation. EXTREMITIES: Normal range of motion. No clubbing or cyanosis. Peripheral pulses intact. No lower extremity edema NEUROLOGIC: Awake and alert. Oriented x 3. ASSESSMENT: Abdominal pain Gallstone pancreatitis Transaminitis History of portal vein thrombosis, previously on Eliquis Hypertension Hyperlipidemia History of pancreatitis, approximately 1 year ago per patient Aortic stenosis PLAN: Obtain 2D echo to assess cardiac structure and function Transaminitis secondary to gallstone pancreatitis. However we will discontinue atorvastatin until LFTs improve Continue additional home cardiac medications There are no absolute contraindications for patient to proceed with ERCP or cholecystectomy Further recommendations pending patient course Nurse practitioner note has been reviewed by physician. Signing provider agrees with the documented findings, assessment, and plan of care documented by SINKER PULLER as a scribe. Past Medical History Past Medical History: Asthma, Deep Vein Thrombosis (DVT), Hyperlipidemia, Hypertension Additional Past Medical History / Comment(s): colitis, pancreatitis History of Any Multi-Drug Resistant Organisms: None Reported Additional Past Surgical History / Comment(s): glacoma surgery Past Anesthesia/Blood Transfusion Reactions: No Reported Reaction Past Psychological History: No Psychological Hx Reported Smoking Status: Former smoker Past Alcohol Use History: None Reported Past Drug Use History: None Reported Medications and Allergies Home Medications Medication Instructions Recorded Confirmed Type Albuterol Sulfate [Albuterol 2 puff INHALATION RT-BID 07/15/24 07/15/24 History Sulfate Hfa] Ascorbic Acid [Vitamin C] 500 mg PO DAILY 07/15/24 07/15/24 History Aspirin [[place] Aspirin EC] 81 mg PO DAILY 07/15/24 07/15/24 History Famotidine [Pepcid] 20 - 40 mg PO DAILY 07/15/24 07/15/24 History Losartan [Cozaar] 25 mg PO DAILY 07/15/24 07/15/24 History Magnesium Oxide [Magnesium] 500 mg PO DAILY 07/15/24 07/15/24 History Multivitamins, Thera [Multivitamin 1 tab PO DAILY 07/15/24 07/15/24 History (formulary)] Rosuvastatin [Crestor] 10 mg PO DAILY 07/15/24 07/15/24 History azaTHIOprine [Imuran] 100 mg PO DAILY 07/15/24 07/15/24 History Allergies Allergy/AdvReac Type Severity Reaction Status Date / Time No Known Allergies Allergy Verified 07/15/24 23:17 Physical Exam Vitals: Vital Signs Temp Pulse Pulse Resp BP BP Pulse Ox 07/16/24 01:50 99.9 F H 101 H 17 139/78 93 L 07/15/24 22:51 100.3 F H 107 H 20 155/92 95 07/15/24 22:00 99.4 F 78 16 130/84 98 07/15/24 21:45 138/93 07/15/24 21:29 24 157/100 07/15/24 21:00 84 18 148/100 98 07/15/24 20:26 76 07/15/24 20:16 74 07/15/24 16:00 76 20 153/104 98 07/15/24 12:25 98.7 F 95 20 149/101 94 L 07/15/24 10:44 92 16 146/92 92 L 07/15/24 09:03 98 20 157/101 94 L Intake and Output 07/15/24 07/16/24 07/16/24 22:59 06:59 14:59 Other: # Voids 2 Weight 96.162 kg Results 07/15/24 06:38 07/15/24 06:38 Coagulation 07/15/24 Range/Units 12:37 PT 10.3 (9.9-11.9) sec Current Medications Generic Name Dose Route Start Last Admin Trade Name Freq PRN Reason Stop Dose Admin Acetaminophen 650 mg 07/15/24 09:14 Acetaminophen Tab 325 Mg Tab PO Q6HR PRN Mild Pain or Fever > 100.5 Albuterol Sulfate 2.5 mg 07/15/24 20:00 07/15/24 20:16 Albuterol Nebulized 2.5 Mg/3 Ml INHALATION 2.5 mg RT-BID KATYA Administration Ascorbic Acid 500 mg 07/16/24 09:00 Ascorbic Acid 500 Mg Tab PO DAILY [facility] Atorvastatin Calcium 20 mg 07/16/24 09:00 Atorvastatin 20 Mg Tab PO DAILY [facility] Azathioprine 100 mg 07/16/24 09:00 Azathioprine 50 Mg Tab PO DAILY [facility] Famotidine 20 mg 07/16/24 09:00 Famotidine 20 Mg Tab PO DAILY [facility] Hydromorphone HCl 0.5 mg 07/15/24 09:14 Hydromorphone 0.5 Mg/0.5 Ml Syringe IVP Q3HR PRN Moderate Pain (Scale 4 to 6) Hydromorphone HCl 1 mg 07/15/24 09:14 07/16/24 05:11 Hydromorphone 1 Mg/Ml 1 Ml Syringe IVP 1 mg Q3HR PRN Administration Severe Pain (Scale 7 to 10) Sodium Chloride 1,000 mls @ 150 mls/hr 07/15/24 09:15 07/15/24 21:28 Saline 0.9% IV 150 mls/hr .Q6H40M KATYA Administration Losartan Potassium 25 mg 07/16/24 09:00 Losartan 25 Mg Tab PO DAILY KATYA Magnesium Oxide 400 mg 07/16/24 09:00 Magnesium Oxide 400 Mg Tab PO DAILY KATYA Multivitamins 1 each 07/16/24 09:00 Multivitamins, Thera 1 Each Tab PO DAILY KATYA Naloxone HCl 0.2 mg 07/15/24 09:14 Naloxone 0.4 Mg/Ml 1 Ml Vial IV Q2M PRN Opioid Reversal Ondansetron HCl 4 mg 07/15/24 09:14 07/15/24 21:28 Ondansetron 4 Mg/2 Ml Vial IVP 4 mg Q8HR PRN Administration Nausea And Vomiting Pantoprazole Sodium 40 mg 07/16/24 09:00 Pantoprazole 40 Mg/10 Ml Vial IV DAILY KATYA Intake and Output 07/15/24 07/16/24 07/16/24 22:59 06:59 14:59 Other: # Voids 2 Weight 96.162 kg 07/15/24 06:38 07/15/24 06:38
[2024-07-16 10:46] LABS: HCT 41.6 % (39.6-50.0); HGB 13.7 g/dL (13.0-17.0); MCH 30.2 pg (27.0-32.0); MCHC 32.9 g/dL (32.0-37.0); MCV 91.8 FL (80.0-97.0); Mean Platelet Volume 9.6 FL (9.5-12.2); NRBC Per 100 WBC 0 X 10*3/uL (0.00-0.01); Platelet Count 265 X 10*3/uL (140-440); RBC 4.53 X 10*6/uL (4.40-5.60); RDW 16.2 % (11.5-14.5); WBC 14.17 X 10*3/uL (4.50-10.00)
--- NOTE | 2024-07-16 11:10 | P.PN ---
Subjective Progress Note Date: 07/16/24 CHIEF COMPLAINT: Gallstone pancreatitis HISTORY OF PRESENT ILLNESS: Patient continues to have right upper quadrant abdominal pain. He is undergoing an echo this morning. He was evaluated by cardiology service and there was no contraindication to proceed with cholecystectomy. GI service has decided not to do the ERCP today. Patient did have a low-grade temp of 100.3 last night. He has been mildly tachycardic. WBC is up from 9.6-14.17 CMP and lipase are still pending PHYSICAL EXAM: VITAL SIGNS: Reviewed. GENERAL: Well-developed in no acute distress. ABDOMEN: Soft. Nondistended. Tenderness to palpation right upper quadrant NEUROLOGIC: Alert and oriented. Cranial nerves II through XII grossly intact. ASSESSMENT: 1. Gallstone pancreatitis 2. Cholecystitis 3. Possible choledocholithiasis with elevated LFTs and total bilirubin PLAN: -Patient scheduled for Robotic cholecystectomy with Dr. Younger on Sunday -Keep patient n.p.o. -Continue IV fluids -Antibiotics added for leukocytosis and cholecystitis Physician Premium Card Cancellation Clerk note has been reviewed by physician. Signing provider agrees with the documented findings, assessment, and plan of care. Patient seen and examined at bedside. Continues to have abdominal pain. Plan was initially for ERCP by GI service today. Will follow-up. Continue treatment for pancreatitis. Patient will require cholecystectomy. Marcos Lanier, Objective - Vital Signs Vital signs: Vital Signs Temp 98 F 07/16/24 07:00 Pulse 100 07/16/24 09:27 Resp 18 07/16/24 09:27 BP 141/83 07/16/24 07:00 Pulse Ox 93 L 07/16/24 07:00 FiO2 Intake & Output 07/15/24 07/16/24 07/16/24 18:59 06:59 18:59 Weight 96.162 kg Other: # Voids 2 - Labs CBC & Chem 7: 07/16/24 06:10 07/16/24 05:48 Labs: Abnormal Lab Results - Last 24 Hours (Table) 07/16/24 Range/Units 06:10 WBC 14.17 H (4.50-10.00) X 10*3/uL RDW 16.2 H (11.5-14.5) %
[2024-07-16 11:39] LABS: ALT 265 U/L (10-49); AST 83 U/L (14-35); Albumin 3.5 g/dL (3.8-4.9); Albumin/Globulin Ratio 1.84 Ratio (1.60-3.17); Alkaline Phosphatase 272 U/L (41-126); BUN/Creat Ratio 28.33 Ratio (12.00-20.00); Blood Urea Nitrogen 25.5 mg/dL (9.0-27.0); Carbon Dioxide 22.4 mmol/L (21.6-31.8); Chloride 107 mmol/L (96-109); Globulin 1.9 g/dL (1.6-3.3); Glucose 134 mg/dL (70-110); Sodium 140 mmol/L (135-145); Total Bilirubin 0.6 mg/dL (0.3-1.2); Total Protein 5.4 g/dL (6.2-8.2)
[2024-07-16 11:42] LABS: Amylase 730 U/L (23-121)
--- NOTE | 2024-07-16 11:52 | P.PN ---
Subjective Progress Note Date: 07/16/24 Principal diagnosis: Gallstone pancreatitis This a pleasant 63-year-old man known to gastroenterology services and Dr. Alvarez for history of colitis who is presenting to the emergency department with acute onset of abdominal pain associated with nausea and vomiting that started at 4 PM yesterday. Patient also states he has a history of pancreatitis about a year ago unclear etiology. He denies any fevers or chills, no bodyaches however states abdominal pain is still quite significant. States ulcerative colitis is well controlled and is currently on Imuran. Patient had elevated amylase and lipase 2289 and 43612 respectively with elevated LFTs. Gastroenterology was consulted for gallstone pancreatitis. Patient is without any leukocytosis, WBC 9.6 hemoglobin 15 platelet count 307,000 sodium 137 potassium 4.7 BUN 22 creatinine 0.9 total bilirubin 1.7 AST 371 ALT 425 alkaline phosphatase 347 amylase 2289 lipase 16 378 07/16/2024 Patient seen and examined today as a follow-up. He still is reporting his pain 9 or 10. No nausea or vomiting. Total bilirubin 0.6 AST 83 ALT 265 alkaline phosphatase 272 amylase 730, lipase still pending. Objective - Vital Signs Vital signs: Vital Signs Temp 98 F 07/16/24 07:00 Pulse 100 07/16/24 09:27 Resp 18 07/16/24 09:27 BP 141/83 07/16/24 07:00 Pulse Ox 93 L 07/16/24 07:00 FiO2 Intake & Output 07/15/24 07/16/24 07/16/24 18:59 06:59 18:59 Weight 96.162 kg Other: # Voids 2 - Exam General appearance: The patient is alert, oriented, appears in no acute distress. HET: Head is normocephalic and atraumatic. Conjunctiva pink. Sclera anicteric. Neck: Supple without lymphadenopathy. Abdomen: Soft, epigastric tenderness, nondistended. Extremities: Normal skin color and turgor. No pedal edema Skin: No rashes, no jaundice Neurological: No focal deficits. Alert and oriented. - Labs CBC & Chem 7: 07/16/24 06:10 07/16/24 05:48 Assessment and Plan (1) Gallstone pancreatitis Narrative/Plan: 63-year-old male presenting with acute onset abdominal pain in the epigastric and right upper quadrant region associated with nausea vomiting, cholelithiasis on CT and call bladder ultrasound with elevated LFTs and elevated amylase and lipase all consistent with a gallstone pancreatitis. LFTs in a cholestatic pattern on admission however are improving with T. bili trending down as well as LFTs. Likely just dealing with a gallstone pancreatitis. Continue with symptomatic treatment. Tentative plan now is cholecystectomy with general surgery on Sunday. Current Visit: Yes Status: Acute Code(s): K85.10 - BILIARY ACUTE PANCREATITIS WITHOUT NECROSIS OR INFECTION SNOMED Code(s): 14598849 (2) Abdominal pain Current Visit: Yes Status: Acute Code(s): R10.9 - UNSPECIFIED ABDOMINAL PAIN SNOMED Code(s): 81234914 (3) Ulcerative colitis Current Visit: Yes Status: Acute Code(s): K51.90 - ULCERATIVE COLITIS, UNSPECIFIED, WITHOUT COMPLICATIONS SNOMED Code(s): 88678566 (4) Transaminitis Narrative/Plan: Improving Current Visit: Yes Status: Acute Code(s): R74.01 - ELEVATION OF LEVELS OF LIVER TRANSAMINASE LEVELS SNOMED Code(s): 795899892 (5) Cholelithiasis Current Visit: Yes Status: Acute Code(s): K80.20 - CALCULUS OF GALLBLADDER W/O CHOLECYSTITIS W/O OBSTRUCTION SNOMED Code(s): 425822574 Plan: 1. Continue symptomatic and supportive care 2. Continue aggressive IV hydration 3. Pain medication as needed 4. Antiemetics as needed 5. Protonix 40 mg daily for GI prophylaxis 6. Repeat labs in the morning 7. ERCP canceled 8. Patient tentatively scheduled for cholecystectomy on Sunday Thank you for this consultation, we will continue to follow. Dr. Sasha Pompa I agree with the dictator's note, documented as a scribe by Shea Willingham.
--- NOTE | 2024-07-16 12:26 | CA ---
Transthoracic Echo Report Name: Sherif Crane Age: 63 Gender: M : 1960 Exam Date: 07/16/2024 09:07 Exam Location: [place] [facility] Ht (in): 66 Wt (lb): 212 Ordering Physician: Sofya East Attending/Referring Phys: [id number], [place] Display Designer Rebecca Goyal, RONALDO Procedure CPT: Indications: LV function, murmur Cardiac Hx: Technical Quality: Fair Contrast 1: Total Dose (mL): Contrast 2: Total Dose (mL): MEASUREMENTS (Male / Female) Normal Values 2D ECHO LV Diastolic Diameter PLAX 5.6 cm 4.2 - 5.9 / 3.9 - 5.3 cm LV Systolic Diameter PLAX 3.2 cm IVS Diastolic Thickness 1.4 cm 0.6 - 1.0 / 0.6 - 0.9 cm LVPW Diastolic Thickness 1.6 cm 0.6 - 1.0 / 0.6 - 0.9 cm LV Relative Wall Thickness 0.5 RV Internal Dim ED PLAX 3.0 cm LVOT Diameter 2.6 cm LA Systolic Diameter LX 4.3 cm 3.0 - 4.0 / 2.7 - 3.8 cm LV Diastolic Volume MOD 4C 111.3 cm??? LV Systolic Volume MOD 4C 54.0 cm??? LV Ejection Fraction MOD 4C 51.4 % LV Cardiac Index MOD 4C 2712.2 cm???/min???m??? LV Diastolic Length 4C 8.9 cm LV Systolic Length 4C 7.2 cm LV Diastolic Volume MOD 2C 70.3 cm??? LV Systolic Volume MOD 2C 37.8 cm??? LV Ejection Fraction MOD 2C 46.2 % LV Cardiac Index MOD 2C 1540.1 cm???/min???m??? LV Diastolic Length 2C 8.6 cm LV Systolic Length 2C 7.6 cm LA Volume 47.3 cm??? 18 - 58 / 22 - 52 cm??? LA Volume Index 21.9 cm???/m??? 16 - 28 cm???/m??? M-MODE Aortic Root Diameter MM 3.2 cm AV Cusp Separation MM 2.3 cm DOPPLER AV Peak Velocity 330.5 cm/s AV Peak Gradient 43.7 mmHg AV Mean Velocity 231.9 cm/s AV Mean Gradient 24.5 mmHg AV Velocity Time Integral 59.4 cm LVOT Peak Velocity 110.8 cm/s LVOT Peak Gradient 4.9 mmHg LVOT Velocity Time Integral 29.5 cm LVOT Stroke Volume 155.2 cm??? LVOT Stroke Volume Index 75.7 ml/m??? LVOT Cardiac Index 7349.4 cm???/min???m??? AV Area Cont Eq vti 2.6 cm??? AV Area Cont Eq pk 1.8 cm??? MV Area PHT 4.9 cm??? Mitral E Point Velocity 92.4 cm/s Mitral A Point Velocity 104.7 cm/s Mitral E to A Ratio 0.9 MV Deceleration Time 154.2 ms TR Peak Velocity 321.2 cm/s TR Peak Gradient 41.3 mmHg Right Ventricular Systolic Press 46.3 mmHg FINDINGS Left Ventricle Left ventricular ejection fraction is estimated at 55-60 %. Left ventricular cavity size normal. Moderately increased septal wall thickness. Normal left ventricular wall motion. Right Ventricle Normal right ventricular size and function. Moderate pulmonary hypertension. Right ventricular systolic pressure estimated at 46 mm hg. Right Atrium Normal right atrial size. No right atrial thrombus or mass seen. Left Atrium Mildly increased left atrial diameter. No left atrial thrombus or mass present. Mitral Valve Structurally normal mitral valve. No mitral stenosis,or prolapse. Trace mitral regurgitation Aortic Valve Bicuspid aortic valve. Diffuse thickening of the aortic valve cusps with reduced excursion. Moderate aortic stenosis with a peak gradient of 43 mmHg and a mean gradient of 25 mmHg. trace to mild aortic regurgitation Tricuspid Valve Structurally normal tricuspid valve. Mild tricuspid regurgitation. Pulmonic Valve Structurally normal pulmonic valve. Trace to mild pulmonic regurgitation. Pericardium No pericardial or pleural effusion. Aorta Normal size aortic root and proximal ascending aorta. CONCLUSIONS 1. Normal left ventricle size and systolic function 2. Bicuspid aortic valve with moderate aortic stenosis with a mean gradient of 25 mmHg 3. Mild tricuspid regurgitation and mild pulmonary hypertension Previewed by: Dr. Caleb Byrd MD (Electronically Signed) Final Date: 16 July 2024 12:25
[2024-07-16] MEDS: PIPERACILLIN-TAZOBACTAM 3.375 GM in SODIUM CHLORIDE 0.9% 100 ML IVPB SCH (12:32)
--- NOTE | 2024-07-16 15:11 | P.HPIM ---
History of Present Illness H&P Date: 07/16/24 Chief Complaint: Nausea and vomiting, abdominal pain This is a 63-year-old gentleman with past medical history significant for obesity, colitis-on Imuran, pancreatitis-last episode 1 year ago with unclear etiology, DVT, hypertension, hyperlipidemia, asthma, former nicotine dependence and multiple other medical issues presented to the ER with abdominal pain, nausea and vomiting. Patient reports started having nausea and vomiting Sunday afternoon around 4 PM, after consuming hamburger helper. Reports nausea and vomiting progressed developed significant abdominal pain and presented to the ER. Last bowel movement was on Sunday X2. Reports no further vomiting since admission. Denied sweats or chills. Denies fevers. Tmax 100.3, initially no leukocytosis, currently white count increased to 14.17, lactic acid within normal limits. On admission amylase 2289, lipase 16,378, T. bili 1.7, AST 371, ALT 425, alk phos 347.NPO,maintained on IV fluid hydration amylase decreased to 730 and lipase to 680, with T. bili within normal limits, AST 83, ALT 265 and alk phos 272 LFTs hemoglobin 13.7, platelets 265. INR 0.95. Renal function, electrolytes stable. UA negative.CT abdomen pelvis with contrast reports Small noncalcified gallstones in gallbladder with hepatic steatosis. Biliary tree is of normal caliber.edema of the pancreas with peripancreatic stranding compatible with acute pancreatitis. Focal calcification within the transverse duodenum seen on image 42 which could reflect a recently passed calcified gallstone. Gallbladder ultrasound reports CBD unable to be identified. cholelithiasis with hepatic steatosis. Evaluated by both GI and general surgery and patient was scheduled for ERCP. This morning patient had significant abdominal tenderness, and ERCP has been cancelled, scheduled for robotic cholecystectomy on Sunday. evaluated by cardiology, echo pending. Review of Systems ROS Statement: Those systems with pertinent positive or pertinent negative responses have been documented in the HPI. ROS Other: All systems not noted in ROS Statement are negative. Past Medical History Past Medical History: Asthma, Deep Vein Thrombosis (DVT), Hyperlipidemia, Hypertension Additional Past Medical History / Comment(s): colitis, pancreatitis History of Any Multi-Drug Resistant Organisms: None Reported Additional Past Surgical History / Comment(s): glacoma surgery Past Anesthesia/Blood Transfusion Reactions: No Reported Reaction Past Psychological History: No Psychological Hx Reported Smoking Status: Former smoker Past Alcohol Use History: None Reported Past Drug Use History: None Reported Medications and Allergies Home Medications Medication Instructions Recorded Confirmed Type Albuterol Sulfate [Albuterol 2 puff INHALATION RT-BID 07/15/24 07/15/24 History Sulfate Hfa] Ascorbic Acid [Vitamin C] 500 mg PO DAILY 07/15/24 07/15/24 History Aspirin [Puako Aspirin EC] 81 mg PO DAILY 07/15/24 07/15/24 History Famotidine [Pepcid] 20 - 40 mg PO DAILY 07/15/24 07/15/24 History Losartan [Cozaar] 25 mg PO DAILY 07/15/24 07/15/24 History Magnesium Oxide [Magnesium] 500 mg PO DAILY 07/15/24 07/15/24 History Multivitamins, Thera [Multivitamin 1 tab PO DAILY 07/15/24 07/15/24 History (formulary)] Rosuvastatin [Crestor] 10 mg PO DAILY 07/15/24 07/15/24 History azaTHIOprine [Imuran] 100 mg PO DAILY 07/15/24 07/15/24 History Allergies Allergy/AdvReac Type Severity Reaction Status Date / Time No Known Allergies Allergy Verified 07/15/24 23:17 Physical Exam Vitals: Vital Signs Temp Pulse Pulse Resp BP BP Pulse Ox 07/16/24 09:27 100 18 07/16/24 09:21 102 H 18 07/16/24 07:00 98 F 103 H 16 141/83 93 L 07/16/24 01:50 99.9 F H 101 H 17 139/78 93 L 07/15/24 22:51 100.3 F H 107 H 20 155/92 95 07/15/24 22:00 99.4 F 78 16 130/84 98 07/15/24 21:45 138/93 07/15/24 21:29 24 157/100 07/15/24 21:00 84 18 148/100 98 07/15/24 20:26 76 07/15/24 20:16 74 07/15/24 16:00 76 20 153/104 98 07/15/24 12:25 98.7 F 95 20 149/101 94 L Intake and Output 07/15/24 07/16/24 07/16/24 22:59 06:59 14:59 Other: # Voids 2 Weight 96.162 kg VS: Reviewed GEN:alert, oriented x 3, sitting up in bed, no acute distress. HEENT:Normocephalic, atraumatic,Conjunctiva pink,Sclera anicteric. Neck: Supple, no JVD,no LNs CV: S1, S2,RR & RR, positive systolic murmur LUNGS: Unlabored, equal air entry, clear to auscultation with bilateral bases diminished Abdomen: Soft, obese, nondistended, epigastric and bilateral lower quadrant tenderness, hypoactive BS Extremities: No pedal edema, no clubbing, no cyanosis. Skin: Warm and dry, no rashes noted. Neurological: Cranial nerves II through XII grossly intact. Results CBC & Chem 7: 07/16/24 06:10 07/16/24 05:48 Labs: Abnormal Lab Results - Last 24 Hours (Table) 07/16/24 07/16/24 Range/Units 05:48 06:10 WBC 14.17 H (4.50-10.00) X 10*3/uL RDW 16.2 H (11.5-14.5) % BUN/Creatinine Ratio 28.33 H (12.00-20.00) Ratio Glucose 134 H (70-110) mg/dL Calcium 8.0 L (8.7-10.3) mg/dL AST 83 H (14-35) U/L ALT 265 H (10-49) U/L Alkaline Phosphatase 272 H (41-126) U/L Total Protein 5.4 L (6.2-8.2) g/dL Albumin 3.5 L (3.8-4.9) g/dL Amylase 730 A* (23-121) U/L Thrombosis Risk Factor Assmnt - Choose All That Apply Any of the Below Risk Factors Present?: Yes Each Factor Represents 1 point: Obesity (BMI >25) Other Risk Factors: Yes Each Risk Factor Represents 2 Points: Age 61-74 years Each Risk Factor Represents 3 Points: History of DVT/PE Other congenital or acquired thrombophilia - If yes, enter type in comment: No Thrombosis Risk Factor Assessment Total Risk Factor Score: 6 Thrombosis Risk Factor Assessment Level: High Risk Assessment and Plan Assessment: Abdominal pain, gallstone pancreatitis, in a patient with prior pancreatitis 1 year ago Leukocytosis secondary to the above. Cholelithiasis Transaminitis Colitis, ulcerative, maintained on Imuran History of portal vein thrombosis, on Eliquis Aortic stenosis Hypertension Hyperlipidemia Plan: Continue on current medications and ,monitoring and symptomatic treatment. Maintain on IV fluid hydration, n.p.o. pain management. Antibiotics ordered.Scheduled for robotic cholecystectomy with general surgery. Aggressive pulmonary toileting with incentive spirometer ordered. PPI in place for GI prophylaxis. The impression and plan of care has been dictated as directed. : I performed a history and examination of this patient, discussed the same with the dictator. I agree with the dictator's note ,documented as a scribe. Any additional findings or plans will be noted.
[2024-07-17 08:55] LABS: Basophils # (A) 0.03 X 10*3/uL (0.00-0.10); Basophils % (A) 0.3 %; Eosinophils # (A) 0.14 X 10*3/uL (0.04-0.35); Eosinophils % (A) 1.2 %; HCT 37.9 % (39.6-50.0); HGB 12.4 g/dL (13.0-17.0); Lymphocytes # (A) 0.74 X 10*3/uL (0.90-5.00); Lymphocytes % (A) 6.3 %; MCH 30.8 pg (27.0-32.0); MCHC 32.7 g/dL (32.0-37.0); MCV 94.3 FL (80.0-97.0); Monocytes # (A) 0.89 X 10*3/uL (0.20-1.00); Monocytes % (A) 7.5 %; NRBC Per 100 WBC 0 X 10*3/uL (0.00-0.01); Neutrophils # (A) 9.94 X 10*3/uL (1.80-7.70); Neutrophils % (A) 84.3 %; Platelet Count 231 X 10*3/uL (140-440); RBC 4.02 X 10*6/uL (4.40-5.60); RDW 15.6 % (11.5-14.5); WBC 11.79 X 10*3/uL (4.50-10.00)
[2024-07-17 09:51] LABS: ALT 172 U/L (10-49); AST 39 U/L (14-35); Albumin 3.3 g/dL (3.8-4.9); Albumin/Globulin Ratio 1.65 Ratio (1.60-3.17); Alkaline Phosphatase 208 U/L (41-126); Blood Urea Nitrogen 19.9 mg/dL (9.0-27.0); Carbon Dioxide 23.2 mmol/L (21.6-31.8); Chloride 107 mmol/L (96-109); Glucose 121 mg/dL (70-110); Lipase 109 U/L (14-60); Potassium 3.9 mmol/L (3.5-5.5); Sodium 139 mmol/L (135-145); Total Bilirubin 0.5 mg/dL (0.3-1.2); Total Protein 5.3 g/dL (6.2-8.2)
--- NOTE | 2024-07-17 10:34 | P.PN ---
Subjective HISTORY OF PRESENT ILLNESS: This is a 63-year-old male with a past medical history significant for pancreatitis, portal vein thrombosis previously on Eliquis, hypertension, and hyperlipidemia. Patient follows in the office with Dr. Georges. We have been asked to see the patient in consultation for cardiac risk stratification. Patient examined at the bedside. Patient presented to the hospital with a chief complaint of abdominal pain. Patient states his symptoms were similar to last year when he had an episode of pancreatitis. Patient denies any chest pain or pressure. He currently denies any shortness of breath. He does report he has been having some shortness of breath recently and was supposed to have some pulmonary testing outpatient performed today. Patient is scheduled to undergo ERCP with GI today. Patient also reports he is scheduled for a cystectomy at the end of the week. Patient reports he was previously on Eliquis for a history of portal vein thrombosis. He states this was discontinued in March by Dr. Taveras. DIAGNOSTICS: - EKG reveals sinus mechanism with no signs of acute ischemia. - Laboratory data: WBC 9.6. Hemoglobin 15.1. Platelet count 307. Sodium 137. Potassium 4.7. BUN 22. Creatinine 0.99. Magnesium 1.8. AST 371. ALT 425. Bilirubin 1.7. Amylase 2289. Lipase 16,378. - Current home cardiac medications include aspirin 81 mg daily, losartan 25 mg daily, rosuvastatin 10 mg daily - Patient underwent Lexiscan stress test in April 2024 which was negative for ischemia 07/17/2024 Patient examined this morning at the bedside. Patient currently denies any chest pain or pressure. He denies any shortness of breath. He reports improvement in his abdominal pain. ERCP was canceled yesterday and patient is scheduled for cholecystectomy tomorrow with general surgery. Echocardiogram completed revealing ejection fraction 55 to 60%, moderate pulmonary hypertension, trace mitral regurgitation, bicuspid aortic valve with moderate aortic stenosis with peak gradient of 43 mmHg and mean gradient of 25 mmHg, mild tricuspid regurgitation. PHYSICAL EXAM: VITAL SIGNS: Reviewed. GENERAL: Well-developed in no acute distress. HEENT: Head is normocephalic. Pupils are equal, round. Sclerae anicteric. Mucous membranes of the mouth are moist. Neck supple. No JVD or thyromegaly LUNGS: Respirations even and unlabored. Lungs essentially clear to auscultation bilaterally. HEART: Regular rate and rhythm. S1 and S2 heard. Systolic murmur noted. ABDOMEN: Soft. Nondistended. Tenderness with palpation. EXTREMITIES: Normal range of motion. No clubbing or cyanosis. Peripheral pulses intact. No lower extremity edema NEUROLOGIC: Awake and alert. Oriented x 3. ASSESSMENT: Abdominal pain Gallstone pancreatitis Transaminitis History of portal vein thrombosis, previously on Eliquis Hypertension Hyperlipidemia History of pancreatitis, approximately 1 year ago per patient Bicuspid aortic valve with moderate aortic stenosis Moderate pulmonary hypertension PLAN: Transaminitis secondary to gallstone pancreatitis. However we will continue to hold atorvastatin until LFTs improve Continue additional home cardiac medications Patient is at intermediate risk to proceed with cholecystectomy from a cardiac standpoint Further recommendations pending patient course Nurse practitioner note has been reviewed by physician. Signing provider agrees with the documented findings, assessment, and plan of care documented by MERCHANDISER SEASONAL as a scribe. Objective - Vital Signs Vital signs: Vital Signs Temp 98.4 F 07/17/24 07:44 Pulse 89 07/17/24 07:44 Resp 19 07/17/24 07:44 BP 161/92 07/17/24 07:44 Pulse Ox 94 L 07/17/24 07:44 FiO2 Intake & Output 07/16/24 07/17/24 07/17/24 18:59 06:59 18:59 Intake Total 0 Balance 0 Intake: Oral 0 Other: Voiding Method Toilet # Voids 2 1 - Labs CBC & Chem 7: 07/17/24 04:34 07/17/24 04:34 Labs: Abnormal Lab Results - Last 24 Hours (Table) 07/16/24 07/16/24 07/16/24 Range/Units 05:48 06:10 06:11 WBC 14.17 H (4.50-10.00) X 10*3/uL RBC (4.40-5.60) X 10*6/uL Hgb (13.0-17.0) g/dL Hct (39.6-50.0) % RDW 16.2 H (11.5-14.5) % Immature Gran # (0.00-0.04) X 10*3/uL Neutrophils # (1.80-7.70) X 10*3/uL Lymphocytes # (0.90-5.00) X 10*3/uL BUN/Creatinine Ratio 28.33 H (12.00-20.00) Ratio Glucose 134 H (70-110) mg/dL Calcium 8.0 L (8.7-10.3) mg/dL AST 83 H (14-35) U/L ALT 265 H (10-49) U/L Alkaline Phosphatase 272 H (41-126) U/L Total Protein 5.4 L (6.2-8.2) g/dL Albumin 3.5 L (3.8-4.9) g/dL Amylase 730 A* (23-121) U/L Lipase 680 H (14-60) U/L 07/17/24 07/17/24 Range/Units 04:34 04:34 WBC 11.79 H (4.50-10.00) X 10*3/uL RBC 4.02 L (4.40-5.60) X 10*6/uL Hgb 12.4 L (13.0-17.0) g/dL Hct 37.9 L (39.6-50.0) % RDW 15.6 H (11.5-14.5) % Immature Gran # 0.05 H (0.00-0.04) X 10*3/uL Neutrophils # 9.94 H (1.80-7.70) X 10*3/uL Lymphocytes # 0.74 L (0.90-5.00) X 10*3/uL BUN/Creatinine Ratio (12.00-20.00) Ratio Glucose 121 H (70-110) mg/dL Calcium 8.0 L (8.7-10.3) mg/dL AST 39 H (14-35) U/L ALT 172 H (10-49) U/L Alkaline Phosphatase 208 H (41-126) U/L Total Protein 5.3 L (6.2-8.2) g/dL Albumin 3.3 L (3.8-4.9) g/dL Amylase (23-121) U/L Lipase 109 H (14-60) U/L
--- NOTE | 2024-07-17 12:05 | P.PN ---
Subjective Progress Note Date: 07/17/24 CHIEF COMPLAINT: Gallstone pancreatitis HISTORY OF PRESENT ILLNESS: Patient reports his pain is less since starting the antibiotic. He does continue to have a little nausea. Evaluated by cardiology service and there was no contraindication to proceed with cholecystectomy. GI service canceled the ERCP yesterday. Afebrile. WBC is down from 14-11.79 Hgb 12.4 platelets 231. Total bilirubin 0.5 LFTs trending downwards. Lipase 109 PHYSICAL EXAM: VITAL SIGNS: Reviewed. GENERAL: Well-developed in no acute distress. ABDOMEN: Soft. Nondistended. Tenderness to palpation right upper quadrant and epigastric area NEUROLOGIC: Alert and oriented. Cranial nerves II through XII grossly intact. ASSESSMENT: 1. Gallstone pancreatitis 2. Cholecystitis 3. Elevated LFTs and total bilirubin improving PLAN: -Patient scheduled for Robotic cholecystectomy with Dr. Younger on Sunday -Clear liquid diet today -N.p.o. after midnight -Continue antibiotics -Repeat labs in a.m. [employer] note has been reviewed by physician. Signing provider agrees with the documented findings, assessment, and plan of care. Objective - Vital Signs Vital signs: Vital Signs Temp 98.4 F 07/17/24 07:44 Pulse 89 07/17/24 07:44 Resp 19 07/17/24 07:44 BP 161/92 07/17/24 07:44 Pulse Ox 94 L 07/17/24 07:44 FiO2 Intake & Output 07/16/24 07/17/24 07/17/24 18:59 06:59 18:59 Intake Total 0 Balance 0 Intake: Oral 0 Other: Voiding Method Toilet Toilet # Voids 2 1 - Labs CBC & Chem 7: 07/17/24 04:34 07/17/24 04:34 Labs: Abnormal Lab Results - Last 24 Hours (Table) 07/16/24 07/17/24 07/17/24 Range/Units 06:11 04:34 04:34 WBC 11.79 H (4.50-10.00) X 10*3/uL RBC 4.02 L (4.40-5.60) X 10*6/uL Hgb 12.4 L (13.0-17.0) g/dL Hct 37.9 L (39.6-50.0) % RDW 15.6 H (11.5-14.5) % Immature Gran # 0.05 H (0.00-0.04) X 10*3/uL Neutrophils # 9.94 H (1.80-7.70) X 10*3/uL Lymphocytes # 0.74 L (0.90-5.00) X 10*3/uL Glucose 121 H (70-110) mg/dL Calcium 8.0 L (8.7-10.3) mg/dL AST 39 H (14-35) U/L ALT 172 H (10-49) U/L Alkaline Phosphatase 208 H (41-126) U/L Total Protein 5.3 L (6.2-8.2) g/dL Albumin 3.3 L (3.8-4.9) g/dL Lipase 680 H 109 H (14-60) U/L
--- NOTE | 2024-07-17 12:27 | P.PN ---
Subjective Progress Note Date: 07/17/24 H&P Date: 07/16/24 Chief Complaint: Nausea and vomiting, abdominal pain This is a 63-year-old gentleman with past medical history significant for obesity, colitis-on Imuran, pancreatitis-last episode 1 year ago with unclear etiology, DVT, hypertension, hyperlipidemia, asthma, former nicotine dependence and multiple other medical issues presented to the ER with abdominal pain, nausea and vomiting. Patient reports started having nausea and vomiting Sunday afternoon around 4 PM, after consuming hamburger helper. Reports nausea and vomiting progressed developed significant abdominal pain and presented to the ER. Last bowel movement was on Sunday X2. Reports no further vomiting since admission. Denied sweats or chills. Denies fevers. Tmax 100.3, initially no leukocytosis, currently white count increased to 14.17, lactic acid within normal limits. On admission amylase 2289, lipase 16,378, T. bili 1.7, AST 371, ALT 425, alk phos 347.NPO,maintained on IV fluid hydration amylase decreased to 730 and lipase to 680, with T. bili within normal limits, AST 83, ALT 265 and alk phos 272 LFTs hemoglobin 13.7, platelets 265. INR 0.95. Renal function, electrolytes stable. UA negative.CT abdomen pelvis with contrast reports Small noncalcified gallstones in gallbladder with hepatic steatosis. Biliary tree is of normal caliber.edema of the pancreas with peripancreatic stranding compatible with acute pancreatitis. Focal calcification within the transverse duodenum seen on image 42 which could reflect a recently passed calcified gallstone. Gallbladder ultrasound reports CBD unable to be identified. cholelithiasis with hepatic steatosis. Evaluated by both GI and general surgery and patient was scheduled for ERCP. This morning patient had significant abdominal tenderness, and ERCP has been cancelled, scheduled for robotic cholecystectomy on Sunday. evaluated by cardiology, echo pending. 07/17/2024 showered this morning .reports less but persistent pain, diffuse, greatest in bilateral lower quadrant pain. LFTs continue to improve , lipase decreased to 109. Recently medicated for nausea. Continues on Zosyn, afebrile, WBC decreased to 11.79. Echo reported normal LV and systolic function, EF 55 to 60% , bicuspid aortic valve with moderate aortic stenosis mean gradient 25 mmHg, mild tricuspid regurgitation, pulmonary hypertension .denies chest pain, palpitations or shortness of breath. Maintaining O2 sats in the 90s on room air. Objective - Vital Signs Vital signs: Vital Signs Temp 98.4 F 07/17/24 07:44 Pulse 89 07/17/24 07:44 Resp 19 07/17/24 07:44 BP 161/92 07/17/24 07:44 Pulse Ox 94 L 07/17/24 07:44 FiO2 Intake & Output 07/16/24 07/17/24 07/17/24 18:59 06:59 18:59 Intake Total 0 Balance 0 Intake: Oral 0 Other: Voiding Method Toilet Toilet # Voids 2 1 - Exam VS: Reviewed GEN:alert and oriented x 3, sitting up in bed, no acute distress. HEENT:Normocephalic, atraumatic,Conjunctiva pink,Sclera anicteric. Neck: Supple, no JVD,no LNs CV: S1, S2,RR & RR, positive systolic murmur. LUNGS: Unlabored, equal air entry, clear to auscultation with bilateral bases diminished Abdomen: Soft, obese, nondistended, right upper quadrant ,epigastric and bilateral lower quadrant tenderness, hypoactive BS Extremities: No pedal edema, no clubbing, no cyanosis. Skin: Warm and dry, no rashes noted. Neurological: Cranial nerves II through XII grossly intact. - Labs CBC & Chem 7: 07/17/24 04:34 07/17/24 04:34 Labs: Abnormal Lab Results - Last 24 Hours (Table) 07/16/24 07/17/24 07/17/24 Range/Units 06:11 04:34 04:34 WBC 11.79 H (4.50-10.00) X 10*3/uL RBC 4.02 L (4.40-5.60) X 10*6/uL Hgb 12.4 L (13.0-17.0) g/dL Hct 37.9 L (39.6-50.0) % RDW 15.6 H (11.5-14.5) % Immature Gran # 0.05 H (0.00-0.04) X 10*3/uL Neutrophils # 9.94 H (1.80-7.70) X 10*3/uL Lymphocytes # 0.74 L (0.90-5.00) X 10*3/uL Glucose 121 H (70-110) mg/dL Calcium 8.0 L (8.7-10.3) mg/dL AST 39 H (14-35) U/L ALT 172 H (10-49) U/L Alkaline Phosphatase 208 H (41-126) U/L Total Protein 5.3 L (6.2-8.2) g/dL Albumin 3.3 L (3.8-4.9) g/dL Lipase 680 H 109 H (14-60) U/L Assessment and Plan Assessment: Abdominal pain, gallstone pancreatitis, in a patient with prior pancreatitis 1 year ago Leukocytosis secondary to the above, improving. Cholecystitis Transaminitis Colitis, ulcerative, maintained on Imuran History of portal vein thrombosis, on Eliquis Aortic stenosis, moderate Hypertension Hyperlipidemia Plan: Continue on current medications and ,monitoring and symptomatic treatment.IV fluid hydration, antiemetics, Zosyn. n.p.o. pain management. Maintain aggressive pulmonary toileting with incentive spirometer reinforced. Increase ambulation as tolerated. scheduled for robotic cholecystectomy tomorrow The impression and plan of care has been dictated as directed. : I performed a history and examination of this patient, discussed the same with the dictator. I agree with the dictator's note ,documented as a scribe. Any additional findings or plans will be noted.
--- NOTE | 2024-07-17 15:06 | P.PN ---
Subjective Progress Note Date: 07/17/24 Principal diagnosis: Gallstone pancreatitis This a pleasant 63-year-old man known to gastroenterology services and Dr. Alvarez for history of colitis who is presenting to the emergency department with acute onset of abdominal pain associated with nausea and vomiting that started at 4 PM yesterday. Patient also states he has a history of pancreatitis about a year ago unclear etiology. He denies any fevers or chills, no bodyaches however states abdominal pain is still quite significant. States ulcerative colitis is well controlled and is currently on Imuran. Patient had elevated amylase and lipase 2289 and 63777 respectively with elevated LFTs. Gastroenterology was consulted for gallstone pancreatitis. Patient is without any leukocytosis, WBC 9.6 hemoglobin 15 platelet count 307,000 sodium 137 potassium 4.7 BUN 22 creatinine 0.9 total bilirubin 1.7 AST 371 ALT 425 alkaline phosphatase 347 amylase 2289 lipase 16 378 07/16/2024 Patient seen and examined today as a follow-up. He still is reporting his pain 9 or 10. No nausea or vomiting. Total bilirubin 0.6 AST 83 ALT 265 alkaline phosphatase 272 amylase 730, lipase still pending. 07/17/2024 Patient seen and examined today as a follow-up. States abdominal pain was getting better but he got up and took a shower now he feels like it was a little too much and the pain is returned. Denies any nausea or vomiting. Leukocytosis improving today's WBC 11.7 hemoglobin 12.4 platelet count 231,000 total bilirub in 0.5 AST 39 ALT 172 alkaline phosphatase 208 lipase 109. He is scheduled to undergo cholecystectomy tomorrow Objective - Vital Signs Vital signs: Vital Signs Temp 99.1 F 07/17/24 14:00 Pulse 89 07/17/24 14:00 Resp 21 07/17/24 14:00 BP 165/88 07/17/24 14:00 Pulse Ox 93 L 07/17/24 14:00 FiO2 Intake & Output 07/16/24 07/17/24 07/17/24 18:59 06:59 18:59 Intake Total 0 Balance 0 Intake: Oral 0 Other: Voiding Method Toilet Toilet # Voids 2 1 - Exam General appearance: The patient is alert, oriented, appears in no acute dist ress. HET: Head is normocephalic and atraumatic. Conjunctiva pink. Sclera anicteric. Neck: Supple without lymphadenopathy. Abdomen: Soft, epigastric tenderness, nondistended. Extremities: Normal skin color and turgor. No pedal edema Skin: No rashes, no jaundice Neurological: No focal deficits. Alert and oriented. - Labs CBC & Chem 7: 07/17/24 04:34 07/17/24 04:34 Labs: Abnormal Lab Results - Last 24 Hours (Table) 07/17/24 07/17/24 Range/Units 04:34 04:34 WBC 11.79 H (4.50-10.00) X 10*3/uL RBC 4.02 L (4.40-5.60) X 10*6/uL Hgb 12.4 L (13.0-17.0) g/dL Hct 37.9 L (39.6-50.0) % RDW 15.6 H (11.5-14.5) % Immature Gran # 0.05 H (0.00-0.04) X 10*3/uL Neutrophils # 9.94 H (1.80-7.70) X 10*3/uL Lymphocytes # 0.74 L (0.90-5.00) X 10*3/uL Glucose 121 H (70-110) mg/dL Calcium 8.0 L (8.7-10.3) mg/dL AST 39 H (14-35) U/L ALT 172 H (10-49) U/L Alkaline Phosphatase 208 H (41-126) U/L Total Protein 5.3 L (6.2-8.2) g/dL Albumin 3.3 L (3.8-4.9) g/dL Lipase 109 H (14-60) U/L Assessment and Plan (1) Gallstone pancreatitis Narrative/Plan: 63-year-old male presenting with acute onset abdominal pain in the epigastric and right upper quadrant region associated with nausea vomiting, cholelithiasis on CT and call bladder ultrasound with elevated LFTs and elevated amylase and lipase all consistent with a gallstone pancreatitis. LFTs in a cholestatic pattern on admission however are improving with T. bili trending down as well as LFTs. Possibly patient had passed a stone however labs continue to trend down. Unlikely choledocholithiasis. Likely just dealing with a gallstone pancreatitis. Continue with symptomatic treatment. Tentative plan now is cholecystectomy with general surgery on Sunday. Current Visit: Yes Status: Acute Code(s): K85.10 - BILIARY ACUTE PANCREATITIS WITHOUT NECROSIS OR INFECTION SNOMED Code(s): 89022408 (2) Abdominal pain Current Visit: Yes Status: Acute Code(s): R10.9 - UNSPECIFIED ABDOMINAL PAIN SNOMED Code(s): 63806650 (3) Ulcerative colitis Current Visit: Yes Status: Acute Code(s): K51.90 - ULCERATIVE COLITIS, UNSPECIFIED, WITHOUT COMPLICATIONS SNOMED Code(s): 41876743 (4) Transaminitis Narrative/Plan: Improving Current Visit: Yes Status: Acute Code(s): R74.01 - ELEVATION OF LEVELS OF LIVER TRANSAMINASE LEVELS SNOMED Code(s): 249466502 (5) Cholelithiasis Current Visit: Yes Status: Acute Code(s): K80.20 - CALCULUS OF GALLBLADDER W/O CHOLECYSTITIS W/O OBSTRUCTION SNOMED Code(s): 041332782 Plan: 1. Continue symptomatic and supportive care 2. Continue aggressive IV hydration 3. Pain medication as needed 4. Antiemetics as needed 5. Protonix 40 mg daily for GI prophylaxis 6. Repeat labs in the morning 7. ERCP canceled 8. Patient tentatively scheduled for cholecystectomy on Sunday 9. May advance to clear liquid diet, n.p.o. after midnight for surgery tomorrow Thank you for this consultation, we will continue to follow. Dr. Sasha Pompa I agree with the dictator's note, documented as a scribe by Shea Willingham.
[2024-07-18 06:01] LABS: ALT 104 U/L (4-49); AST 29 U/L (17-59); African American GFR (CKD) >90 (>60 ml/min/1.73 sqM); Albumin/Globulin Ratio 1.3; Alkaline Phosphatase 155 U/L (38-126); Anion Gap 5 mmol/L; Bilirubin,Unconjugated 0.7 mg/dL (0.0-1.1); Blood Urea Nitrogen 17 mg/dL (9-20); Calcium 8.3 mg/dL (8.4-10.2); Carbon Dioxide 23 mmol/L (22-30); Chloride 109 mmol/L (98-107); Globulin 2.4 g/dL; Glucose 111 mg/dL (74-99); Lipase 278 U/L (23-300); Non-African American GFR(CKD) >90 (>60 ml/min/1.73 sqM); Potassium 3.7 mmol/L (3.5-5.1); Sodium 137 mmol/L (137-145); Total Bilirubin 0.9 mg/dL (0.2-1.3); Total Protein 5.4 g/dL (6.3-8.2)
[2024-07-18 06:28] LABS: Basophils % (A) 0 %; Eosinophils # (A) 0.2 k/uL (0-0.7); Eosinophils % (A) 2 %; Lymphocytes # (A) 0.8 k/uL (1.0-4.8); Lymphocytes % (A) 8 %; MCH 30.9 pg (25.0-35.0); MCHC 33.2 g/dL (31.0-37.0); MCV 93.2 fL (80.0-100.0); Monocytes # (A) 0.6 k/uL (0-1.0); Monocytes % (A) 6 %; Neutrophils # (A) 8.2 k/uL (1.3-7.7); Neutrophils % (A) 81 %; Platelet Count 252 k/uL (150-450); RBC 3.86 m/uL (4.30-5.90); RDW 15.3 % (11.5-15.5)
[2024-07-18 06:52] LABS: HGB 11.9 gm/dL (13.0-17.5)
[2024-07-18] MEDS: LOSARTAN 50 MG TAB PO SCH (09:48)
[2024-07-18] MEDS: LOSARTAN 25 MG TAB PO STA (09:52)
--- NOTE | 2024-07-18 10:09 | P.PN ---
Subjective HISTORY OF PRESENT ILLNESS: This is a 63-year-old male with a past medical history significant for pancreatitis, portal vein thrombosis previously on Eliquis, hypertension, and hyperlipidemia. Patient follows in the office with Dr. Georges. We have been asked to see the patient in consultation for cardiac risk stratification. Patient examined at the bedside. Patient presented to the hospital with a chief complaint of abdominal pain. Patient states his symptoms were similar to last year when he had an episode of pancreatitis. Patient denies any chest pain or pressure. He currently denies any shortness of breath. He does report he has been having some shortness of breath recently and was supposed to have some pulmonary testing outpatient performed today. Patient is scheduled to undergo ERCP with GI today. Patient also reports he is scheduled for a cystectomy at the end of the week. Patient reports he was previously on Eliquis for a history of portal vein thrombosis. He states this was discontinued in March by Dr. Taveras. DIAGNOSTICS: - EKG reveals sinus mechanism with no signs of acute ischemia. - Laboratory data: WBC 9.6. Hemoglobin 15.1. Platelet count 307. Sodium 137. Potassium 4.7. BUN 22. Creatinine 0.99. Magnesium 1.8. AST 371. ALT 425. Bilirubin 1.7. Amylase 2289. Lipase 16,378. - Current home cardiac medications include aspirin 81 mg daily, losartan 25 mg daily, rosuvastatin 10 mg daily - Patient underwent Lexiscan stress test in April 2024 which was negative for ischemia 07/17/2024 Patient examined this morning at the bedside. Patient currently denies any chest pain or pressure. He denies any shortness of breath. He reports improvement in his abdominal pain. ERCP was canceled yesterday and patient is scheduled for cholecystectomy tomorrow with general surgery. Echocardiogram completed revealing ejection fraction 55 to 60%, moderate pulmonary hypertension, trace mitral regurgitation, bicuspid aortic valve with moderate aortic stenosis with peak gradient of 43 mmHg and mean gradient of 25 mmHg, mild tricuspid regurgitation. 07/18/2024 Patient examined this morning at the bedside. Patient currently denies chest pain or pressure. He denies shortness of breath. He states his abdominal pain has improved and he was able to sleep well overnight. He is scheduled to undergo laparoscopic cholecystectomy today. Patient's blood pressure slightly elevated this morning. PHYSICAL EXAM: VITAL SIGNS: Reviewed. GENERAL: Well-developed in no acute distress. HEENT: Head is normocephalic. Pupils are equal, round. Sclerae anicteric. Mucous membranes of the mouth are moist. Neck supple. No JVD or thyromegaly LUNGS: Respirations even and unlabored. Lungs essentially clear to auscultation bilaterally. HEART: Regular rate and rhythm. S1 and S2 heard. Systolic murmur noted. ABDOMEN: Soft. Nondistended. Tenderness with palpation. EXTREMITIES: Normal range of motion. No clubbing or cyanosis. Peripheral pulses intact. No lower extremity edema NEUROLOGIC: Awake and alert. Oriented x 3. ASSESSMENT: Abdominal pain Gallstone pancreatitis Transaminitis History of portal vein thrombosis, previously on Eliquis Hypertension Hyperlipidemia History of pancreatitis, approximately 1 year ago per patient Bicuspid aortic valve with moderate aortic stenosis Moderate pulmonary hypertension PLAN: Transaminitis secondary to gallstone pancreatitis. However we will continue to hold atorvastatin until LFTs improve Continue additional home cardiac medications Increase losartan to 50 mg daily for optimal blood pressure control. Patient is at intermediate risk to proceed with cholecystectomy from a cardiac standpoint No further inpatient recommendations from a cardiac standpoint We will sign off. Please reconsult if needed. Patient to follow-up post discharge in the office with Dr. Georges Nurse practitioner note has been reviewed by physician. Signing provider agrees with the documented findings, assessment, and plan of care documented by [employer] INSPECTOR as a scribe. Objective - Vital Signs Vital signs: Vital Signs Temp 99.0 F 07/18/24 08:00 Pulse 74 07/18/24 08:00 Resp 20 07/18/24 08:00 BP 133/85 07/18/24 08:00 Pulse Ox 93 L 07/18/24 08:00 FiO2 Intake & Output 07/17/24 07/18/24 07/18/24 18:59 06:59 18:59 Intake Total 0 1950 Balance 0 1950 Intake: Intake, IV Titration 1750 Amount Piperacillin-Tazobactam 3 100 .375 gm In Sodium Chloride 0.9% 100 ml @ 25 mls/hr IVPB Q8H KATYA Rx#: [id number] Sodium Chloride 0.9% 1, 1650 000 ml @ 150 mls/hr IV . Q6H40M KATYA Rx#:[id number] Oral 0 200 Other: Voiding Method Toilet Toilet # Voids 6 4 - Labs CBC & Chem 7: 07/18/24 05:27 07/18/24 05:27 Labs: Abnormal Lab Results - Last 24 Hours (Table) 07/18/24 07/18/24 Range/Units 05:27 05:27 RBC 3.86 L (4.30-5.90) m/uL Hgb 11.9 L D (13.0-17.5) gm/dL Hct 36.0 L (39.0-53.0) % Neutrophils # 8.2 H (1.3-7.7) k/uL Lymphocytes # 0.8 L (1.0-4.8) k/uL Chloride 109 H (98-107) mmol/L Glucose 111 H (74-99) mg/dL Calcium 8.3 L (8.4-10.2) mg/dL ALT 104 H (4-49) U/L Alkaline Phosphatase 155 H (38-126) U/L Total Protein 5.4 L (6.3-8.2) g/dL Albumin 3.0 L (3.5-5.0) g/dL
--- NOTE | 2024-07-18 11:40 | P.PN ---
Subjective Progress Note Date: 07/18/24 Principal diagnosis: Gallstone pancreatitis This a pleasant 63-year-old man known to gastroenterology services and Dr. Alvarez for history of colitis who is presenting to the emergency department with acute onset of abdominal pain associated with nausea and vomiting that started at 4 PM yesterday. Patient also states he has a history of pancreatitis about a year ago unclear etiology. He denies any fevers or chills, no bodyaches however states abdominal pain is still quite significant. States ulcerative colitis is well controlled and is currently on Imuran. Patient had elevated amylase and lipase 2289 and 15630 respectively with elevated LFTs. Gastroenterology was consulted for gallstone pancreatitis. Patient is without any leukocytosis, WBC 9.6 hemoglobin 15 platelet count 307,000 sodium 137 potassium 4.7 BUN 22 creatinine 0.9 total bilirubin 1.7 AST 371 ALT 425 alkaline phosphatase 347 amylase 2289 lipase 16 378 07/16/2024 Patient seen and examined today as a follow-up. He still is reporting his pain 9 or 10. No nausea or vomiting. Total bilirubin 0.6 AST 83 ALT 265 alkaline phosphatase 272 amylase 730, lipase still pending. 07/17/2024 Patient seen and examined today as a follow-up. States abdominal pain was getting better but he got up and took a shower now he feels like it was a little too much and the pain is returned. Denies any nausea or vomiting. Leukocytosis improving today's WBC 11.7 hemoglobin 12.4 platelet count 231,000 total bilirub in 0.5 AST 39 ALT 172 alkaline phosphatase 208 lipase 109. He is scheduled to undergo cholecystectomy tomorrow 07/18/2024 Patient seen and examined today as a follow-up. He is scheduled to undergo laparoscopic cholecystectomy with general surgery. States abdominal pain is improving. Leukocytosis improved. LFTs continue to trend down. Today total bilirubin 0.9 AST 29 ALT 104 alkaline phosphatase 155 lipase 278 Objective - Vital Signs Vital signs: Vital Signs Temp 98.7 F 07/18/24 02:00 Pulse 92 07/18/24 02:00 Resp 16 07/18/24 02:00 BP 156/95 07/18/24 02:00 Pulse Ox 95 07/18/24 02:00 FiO2 Intake & Output 07/17/24 07/17/24 07/18/24 06:59 18:59 06:59 Intake Total 0 Balance 0 Intake: Oral 0 Other: Voiding Method Toilet Toilet Toilet # Voids 1 6 - Exam General appearance: The patient is alert, oriented, appears in no acute distress. HET: Head is normocephalic and atraumatic. Conjunctiva pink. Sclera anicteric. Neck: Supple without lymphadenopathy. Abdomen: Soft, epigastric tenderness, nondistended. Extremities: Normal skin color and turgor. No pedal edema Skin: No rashes, no jaundice Neurological: No focal deficits. Alert and oriented. - Labs CBC & Chem 7: 07/18/24 05:27 07/18/24 05:27 Labs: Abnormal Lab Results - Last 24 Hours (Table) 07/17/24 07/17/24 07/18/24 Range/Units 04:34 04:34 05:27 WBC 11.79 H (4.50-10.00) X 10*3/uL RBC 4.02 L (4.40-5.60) X 10*6/uL Hgb 12.4 L (13.0-17.0) g/dL Hct 37.9 L (39.6-50.0) % RDW 15.6 H (11.5-14.5) % Immature Gran # 0.05 H (0.00-0.04) X 10*3/uL Neutrophils # 9.94 H (1.80-7.70) X 10*3/uL Lymphocytes # 0.74 L (0.90-5.00) X 10*3/uL Chloride 109 H (98-107) mmol/L Glucose 121 H 111 H (70-110) mg/dL Calcium 8.0 L 8.3 L (8.7-10.3) mg/dL AST 39 H (14-35) U/L ALT 172 H 104 H (10-49) U/L Alkaline Phosphatase 208 H 155 H (41-126) U/L Total Protein 5.3 L 5.4 L (6.2-8.2) g/dL Albumin 3.3 L 3.0 L (3.8-4.9) g/dL Lipase 109 H (14-60) U/L Assessment and Plan (1) Gallstone pancreatitis Narrative/Plan: 63-year-old male presenting with acute onset abdominal pain in the epigastric and right upper quadrant region associated with nausea vomiting, cholelithiasis on CT and call bladder ultrasound with elevated LFTs and elevated amylase and lipase all consistent with a gallstone pancreatitis. LFTs in a cholestatic p attern on admission however are improving with T. bili trending down as well as LFTs. Possibly patient had passed a stone however labs continue to trend down. Unlikely choledocholithiasis. Likely just dealing with a gallstone pancreatitis. Continue with symptomatic treatment. Tentative plan now is cholecystectomy with general surgery on Sunday. Current Visit: Yes Status: Acute Code(s): K85.10 - BILIARY ACUTE PANC REATITIS WITHOUT NECROSIS OR INFECTION SNOMED Code(s): 15644416 (2) Abdominal pain Current Visit: Yes Status: Acute Code(s): R10.9 - UNSPECIFIED ABDOMINAL PAIN SNOMED Code(s): 15228095 (3) Ulcerative colitis Current Visit: Yes Status: Acute Code(s): K51.90 - ULCERATIVE COLITIS, UNSPECIFIED, WITHOUT COMPLICATIONS SNOMED Code(s): 35955743 (4) Transaminitis Narrative/Plan: Improving Current Visit: Yes Status: Acute Code(s): R74.01 - ELEVATION OF LEVELS OF LIVER TRANSAMINASE LEVELS SNOMED Code(s): 036449005 (5) Cholelithiasis Narrative/Plan: Patient is scheduled today with general surgery for cholecystectomy. Current Visit: Yes Status: Acute Code(s): K80.20 - CALCULUS OF GALLBLADDER W/O CHOLECYSTITIS W/O OBSTRUCTION SNOMED Code(s): 006777783 Plan: 1. Continue symptomatic and supportive care 2. No indication for ERCP 3. Pain medication as needed 4. Antiemetics as needed 5. Protonix 40 mg daily for GI prophylaxis 6. Patient is scheduled scheduled for cholecystectomy today with general surgery 7. Follow-up with gastroenterology as previously scheduled Thank you for this consultation, we will sign off at this time. Dr. Sasha Pompa I agree with the dictator's note, documented as a scribe by Shea Willingham.
--- NOTE | 2024-07-18 13:34 | P.PN ---
Subjective Progress Note Date: 07/18/24 H&P Date: 07/16/24 Chief Complaint: Nausea and vomiting, abdominal pain This is a 63-year-old gentleman with past medical history significant for obesity, colitis-on Imuran, pancreatitis-last episode 1 year ago with unclear etiology, DVT, hypertension, hyperlipidemia, asthma, former nicotine dependence and multiple other medical issues presented to the ER with abdominal pain, nausea and vomiting. Patient reports started having nausea and vomiting Sunday afternoon around 4 PM, after consuming hamburger helper. Reports nausea and vomiting progressed developed significant abdominal pain and presented to the ER. Last bowel movement was on Sunday X2. Reports no further vomiting since admission. Denied sweats or chills. Denies fevers. Tmax 100.3, initially no leukocytosis, currently white count increased to 14.17, lactic acid within normal limits. On admission amylase 2289, lipase 16,378, T. bili 1.7, AST 371, ALT 425, alk phos 347.NPO,maintained on IV fluid hydration amylase decreased to 730 and lipase to 680, with T. bili within normal limits, AST 83, ALT 265 and alk phos 272 LFTs hemoglobin 13.7, platelets 265. INR 0.95. Renal function, electrolytes stable. UA negative.CT abdomen pelvis with contrast reports Small noncalcified gallstones in gallbladder with hepatic steatosis. Biliary tree is of normal caliber.edema of the pancreas with peripancreatic stranding compatible with acute pancreatitis. Focal calcification within the transverse duodenum seen on image 42 which could reflect a recently passed calcified gallstone. Gallbladder ultrasound reports CBD unable to be identified. cholelithiasis with hepatic steatosis. Evaluated by both GI and general surgery and patient was scheduled for ERCP. This morning patient had significant abdominal tenderness, and ERCP has been cancelled, scheduled for robotic cholecystectomy on Sunday. evaluated by cardiology, echo pending. 07/17/2024 showered this morning .reports less but persistent pain, diffuse, greatest in bilateral lower quadrant pain. LFTs continue to improve , lipase decreased to 109. Recently medicated for nausea. Continues on Zosyn, afebrile, WBC decreased to 11.79. Echo reported normal LV and systolic function, EF 55 to 60% , bicuspid aortic valve with moderate aortic stenosis mean gradient 25 mmHg, mild tricuspid regurgitation, pulmonary hypertension .denies chest pain, palpitations or shortness of breath. Maintaining O2 sats in the 90s on room air. 07/18/2024 reports significant improvement in abdominal pain, nearly subsided.NPO, scheduled for robotic cholecystectomy today. Tmax 100.3, WBC normalized. Renal function stable. LFTs continue trending down. Lipase normal, 278. Objective - Vital Signs Vital signs: Vital Signs Temp 99.0 F 07/18/24 08:00 Pulse 74 07/18/24 08:00 Resp 20 07/18/24 08:00 BP 133/85 07/18/24 08:00 Pulse Ox 93 L 07/18/24 08:00 FiO2 Intake & Output 07/17/24 07/18/24 07/18/24 18:59 06:59 18:59 Intake Total 0 1950 Balance 0 1950 Intake: Intake, IV Titration 1750 Amount Piperacillin-Tazobactam 3 100 .375 gm In Sodium Chloride 0.9% 100 ml @ 25 mls/hr IVPB Q8H KATYA Rx#: [id number] Sodium Chloride 0.9% 1, 1650 000 ml @ 150 mls/hr IV . Q6H40M KATYA Rx#:[id number] Oral 0 200 Other: Voiding Method Toilet Toilet # Voids 6 4 - Exam VS: Reviewed GEN:alert and oriented x 3, sitting up in bed, no acute distress. HEENT:Normocephalic, atraumatic,Conjunctiva pink,Sclera anicteric. Neck: Supple, no JVD,no LNs CV: S1, S2,RR & RR, positive systolic murmur. LUNGS: Unlabored, equal air entry, clear to auscultation with bilateral bases diminished Abdomen: Soft, obese, nondistended, epigastric tenderness, +BS Extremities: No pedal edema, no clubbing, no cyanosis. Skin: Warm and dry, no rashes noted. Neurological: Cranial nerves II through XII grossly intact. - Labs CBC & Chem 7: 07/18/24 05:27 07/18/24 05:27 Labs: Abnormal Lab Results - Last 24 Hours (Table) 07/18/24 07/18/24 Range/Units 05:27 05:27 RBC 3.86 L (4.30-5.90) m/uL Hgb 11.9 L D (13.0-17.5) gm/dL Hct 36.0 L (39.0-53.0) % Neutrophils # 8.2 H (1.3-7.7) k/uL Lymphocytes # 0.8 L (1.0-4.8) k/uL Chloride 109 H (98-107) mmol/L Glucose 111 H (74-99) mg/dL Calcium 8.3 L (8.4-10.2) mg/dL ALT 104 H (4-49) U/L Alkaline Phosphatase 155 H (38-126) U/L Total Protein 5.4 L (6.3-8.2) g/dL Albumin 3.0 L (3.5-5.0) g/dL Assessment and Plan Assessment: Abdominal pain, gallstone pancreatitis, in a patient with prior pancreatitis 1 year ago Leukocytosis secondary to the above, improving. Cholecystitis Transaminitis Colitis, ulcerative, maintained on Imuran History of portal vein thrombosis, on Eliquis Aortic stenosis, moderate Hypertension Hyperlipidemia Plan: Continue on current medications and ,monitoring and symptomatic treatment.IV fluid hydration, antiemetics, Zosyn. n.p.o. pain management. Scheduled for robotic cholecystectomy today. Aggressive pulmonary toileting with incentive spirometer reinforced. The impression and plan of care has been dictated as directed. : I performed a history and examination of this patient, discussed the same with the dictator. I agree with the dictator's note ,documented as a scribe. Any additional findings or plans will be noted.
[2024-07-18] MEDS: DEXAMETHASONE SOD PHOSPHATE 4 MG/ML 1 ML VIAL IVP STA (14:49)
[2024-07-18] MEDS: HEPARIN SODIUM,PORCINE 5,000 UNIT/ML 1 ML VIAL SQ STA (15:27)
[2024-07-18] MEDS ORDERED: MIDAZOLAM 2 MG/2 ML VIAL ONE (15:32)
[2024-07-18] MEDS ORDERED: fentaNYL (PF) 50 MCG/ML 2 ML AMP ONE (15:32)
[2024-07-18] MEDS ORDERED: SUCCINYLCHOLINE CHLORIDE 200 MG/10 ML VIAL IV ONE (15:32)
[2024-07-18] MEDS ORDERED: HYDROmorphone (PF) 1 MG/ML ONE (15:32)
[2024-07-18] MEDS ORDERED: KETOROLAC 15 MG/ML 1 ML VIAL ONE (15:32)
[2024-07-18] MEDS ORDERED: INDOCYANINE GREEN 25 MG VIAL IV ONE (15:32)
[2024-07-18] MEDS ORDERED: GLYCOPYRROLATE 0.2 MG/ML 2 ML VIAL ONE (15:32)
[2024-07-18] MEDS ORDERED: NEOSTIGMINE 1 MG/ML 10 ML VIAL ONE (15:32)
[2024-07-18] MEDS ORDERED: LIDOCAINE 1% INJ 10MG/ML (20 ML MDV) ONE (15:32)
[2024-07-18] MEDS ORDERED: ROCURONIUM 10 MG/ML (5 ML VIAL) IV ONE (15:32)
[2024-07-18] MEDS ORDERED: PROPOFOL 10 MG/ML 20 ML VIAL IV ONE (15:32)
[2024-07-18] MEDS: IV FLUID CONTINUATION 500 ML IV ONE (15:37)
[2024-07-18] MEDS: LIDOCAINE 1%-EPI 1:100,000 20 ML VIAL SQ ONE (16:01)
--- NOTE | 2024-07-18 16:42 | P.OP ---
Date of Procedure: 07/18/24 Preoperative Diagnosis: Gallstone Pancreatitis Postoperative Diagnosis: 1. Acute Cholecystitis 2. Gallstone Pancreatitis Procedure(s) Performed: Robotic Cholecystectomy Anesthesia: MAC Surgeon: Tanvir Younger Pathology: other (Gallbladder) Condition: stable Disposition: PACU Description of Procedure: The patient was brought to the operating suite in placed in the supine position. Anesthesia was given and the patient was intubated. The patient was then prepped and draped in usual sterile fashion. A timeout was performed before the procedure began. An #11 blade was used to make an incision at Ingram's point and a 5 mm optiview was used to gain access to the peritoneal cavity. The cavity was insufflated and the patient was positioned. Three additional working 8 mm ports were placed on the right side of the patients abdomen and the 5 mm port used to access the abdomen was replaced with a 12 mm robotic port. The robot was then docked and the instruments were inserted into the abdomen. I then sat at the robotic console and began my dissection. It should be noted that the transverse colon and small bowel were very dilated likely as a reaction to the patients pancreatitis. The gallbladder was grasped by the infundibulum and fundus and dissection began. The cystic duct and the cystic artery were identified and isolated. A critical view of safety was obtained. Two clips were placed proximally and two clips were placed distally on both the duct and artery. The duct and the artery were then both divided. There was an incomplete seal of the cystic artery and there was some bleeding noted. An additional clip was eventually placed on the cystic artery and the bleeding was controlled. A hook cautery was then used to take the gallbladder off of the liver bed. There was good hemostasis. At this point the gallbladder was placed into an endocatch bag and the gallbladder was removed from the abdomen. The robot was then undocked and the ports were removed. Incisions were closed with #4-0 monocryl suture. Skin glue was applied. This concluded the procedure. The patient tolerated the procedure well and was sent to PACU in stable condition.
[2024-07-18] MEDS: SODIUM CHLORIDE 0.9% 1,000 ML IV ONE (16:59)
[2024-07-18] MEDS: LACTATED RINGERS 1,000 ML IV SCH (18:17)
[2024-07-19] MEDS: HYDROcodone/APAP 10-325MG 1 EACH TAB PO PRN (00:44)
[2024-07-19 09:01] LABS: Basophils # (A) 0.02 X 10*3/uL (0.00-0.10); Basophils % (A) 0.2 %; Eosinophils # (A) 0 X 10*3/uL (0.04-0.35); Eosinophils % (A) 0 %; HCT 35.2 % (39.6-50.0); HGB 11.7 g/dL (13.0-17.0); Lymphocytes # (A) 0.45 X 10*3/uL (0.90-5.00); Lymphocytes % (A) 5.2 %; MCH 29.8 pg (27.0-32.0); MCHC 33.2 g/dL (32.0-37.0); MCV 89.8 FL (80.0-97.0); Mean Platelet Volume 9.7 FL (9.5-12.2); Monocytes # (A) 0.66 X 10*3/uL (0.20-1.00); Monocytes % (A) 7.6 %; NRBC Per 100 WBC 0 X 10*3/uL (0.00-0.01); Neutrophils # (A) 7.55 X 10*3/uL (1.80-7.70); Neutrophils % (A) 86.7 %; Platelet Count 313 X 10*3/uL (140-440); RBC 3.92 X 10*6/uL (4.40-5.60); RDW 14.7 % (11.5-14.5); WBC 8.71 X 10*3/uL (4.50-10.00)
[2024-07-19 09:24] LABS: ALT 319 U/L (10-49); AST 356 U/L (14-35); Albumin 3.2 g/dL (3.8-4.9); Albumin/Globulin Ratio 1.45 Ratio (1.60-3.17); Alkaline Phosphatase 773 U/L (41-126); Bilirubin, Conjugated 0.38 mg/dL (0.20-0.40); Bilirubin,Unconjugated 0.32 mg/dL (0.20-1.00); Blood Urea Nitrogen 20.3 mg/dL (9.0-27.0); Calcium 8.2 mg/dL (8.7-10.3); Carbon Dioxide 21.8 mmol/L (21.6-31.8); Chloride 108 mmol/L (96-109); Globulin 2.2 g/dL (1.6-3.3); Glucose 161 mg/dL (70-110); Potassium 4.1 mmol/L (3.5-5.5); Sodium 140 mmol/L (135-145); Total Bilirubin 0.7 mg/dL (0.3-1.2); Total Protein 5.4 g/dL (6.2-8.2)
--- NOTE | 2024-07-19 11:15 | P.PN ---
Progress Note - Text Progress Note Date: 07/19/24 CHIEF COMPLAINT: Gallstone pancreatitis HISTORY OF PRESENT ILLNESS: NAEO. Patient not having any pain. Tolerating CLD. PHYSICAL EXAM: VITAL SIGNS: Reviewed. GENERAL: Well-developed in no acute distress. ABDOMEN: Soft. Nondistended. Appropriate TTP, incisions C/D/I NEUROLOGIC: Alert and oriented. Cranial nerves II through XII grossly intact. ASSESSMENT: 1. Gallstone pancreatitis s/p Robotic Cholecystectomy 2. Cholecystitis 3. Elevated LFTs and total bilirubin improving PLAN: -Advance to LFD -Pain and Nausea Control -Patient OK for Discharge from Surgery Perspective Tanvir Younger [facility] [phone]
--- NOTE | 2024-07-19 13:47 | P.PN ---
Subjective Progress Note Date: 07/19/24 This is a 63-year-old gentleman with past medical history significant for obesity, colitis-on Imuran, pancreatitis-last episode 1 year ago with unclear etiology, DVT, hypertension, hyperlipidemia, asthma, former nicotine dependence and multiple other medical issues presented to the ER with abdominal pain, nausea and vomiting. Patient reports started having nausea and vomiting Sunday afternoon around 4 PM, after consuming hamburger helper. Reports nausea and vomiting progressed developed significant abdominal pain and presented to the ER. Last bowel movement was on Sunday X2. Reports no further vomiting since admission. Denied sweats or chills. Denies fevers. Tmax 100.3, initially no leukocytosis, currently white count increased to 14.17, lactic acid within normal limits. On admission amylase 2289, lipase 16,378, T. bili 1.7, AST 371, ALT 425, alk phos 347.NPO,maintained on IV fluid hydration amylase decreased to 730 and lipase to 680, with T. bili within normal limits, AST 83, ALT 265 and alk phos 272 LFTs hemoglobin 13.7, platelets 265. INR 0.95. Renal function, electrolytes stable. UA negative.CT abdomen pelvis with contrast reports Small noncalcified gallstones in gallbladder with hepatic steatosis. Biliary tree is of normal caliber.edema of the pancreas with peripancreatic stranding compatible with acute pancreatitis. Focal calcification within the transverse duodenum seen on image 42 which could reflect a recently passed calcified gallstone. Gallbladder ultrasound reports CBD unable to be identified. cholelithiasis with hepatic steatosis. Evaluated by both GI and general surgery and patient was scheduled for ERCP. This morning patient had significant abdominal tenderness, and ERCP has been cancelled, scheduled for robotic cholecystectomy on Sunday. evaluated by cardiology, echo pending. 07/17/2024 showered this morning .reports less but persistent pain, diffuse, greatest in bilateral lower quadrant pain. LFTs continue to improve , lipase decreased to 109. Recently medicated for nausea. Continues on Zosyn, afebrile, WBC decreased to 11.79. Echo reported normal LV and systolic function, EF 55 to 60% , bicuspid aortic valve with moderate aortic stenosis mean gradient 25 mmHg, mild tricuspid regurgitation, pulmonary hypertension .denies chest pain, palpitations or shortness of breath. Maintaining O2 sats in the 90s on room air. 07/18/2024 reports significant improvement in abdominal pain, nearly subsided.NPO, scheduled for robotic cholecystectomy today. Tmax 100.3, WBC normalized. Renal function stable. LFTs continue trending down. Lipase normal, 278. 07/19. Patient seen and examined. Patient underwent laparoscopic cholecystectomy yesterday. Blood work done that showed sodium 140, potassium 4.1, BUN 20.3, creatinine 1, bilirubin 0.7, AST 356, ALT 319, alk phos 773 LFTs have trended up compared to yesterday, will monitor patient for 1 more day REVIEW OF SYSTEMS: CONSTITUTIONAL: No fever, no malaise,. CARDIOVASCULAR: No chest pain, no palpitations, no syncope. PULMONARY: No shortness of breath, no cough, GASTROINTESTINAL: No diarrhea, no nausea, no vomiting, no abdominal pain. NEUROLOGICAL: No headaches, no weakness, PHYSICAL EXAMINATION: GENERAL: The patient is alert and oriented x3, not in any acute distress. Well developed, well nourished. HEENT: Pupils are round and equally reacting to light. EOMI. No scleral icterus. No conjunctival pallor. Normocephalic, atraumatic. No pharyngeal erythema. No thyromegaly. CARDIOVASCULAR: S1 and S2 present. No murmurs, rubs, or gallops. PULMONARY: Chest is clear to auscultation, no wheezing or crackles. ABDOMEN: Soft, nontender, nondistended, normoactive bowel sounds. Laparoscopic surgical incisions MUSCULOSKELETAL: No joint swelling or deformity. EXTREMITIES: No cyanosis, clubbing, or pedal edema. NEUROLOGICAL: Gross neurological examination did not reveal any focal deficits. SKIN: No rashes. Assessment and plan Abdominal pain, gallstone pancreatitis, in a patient with prior pancreatitis 1 year ago Leukocytosis secondary to the above, improving. Cholecystitis Transaminitis Colitis, ulcerative, maintained on Imuran History of portal vein thrombosis, on Eliquis Aortic stenosis, moderate Hypertension Hyperlipidemia Monitor vital signs Monitor CBC Monitor CMP Continue pain management Continue antiemetics Monitor LFTs, avoid hepatotoxic agents Continue IV fluids Continue IV Zosyn Surgery following Labs and medication were reviewed.. Continue same treatment. Continue with symptomatic treatment. Resume home medication. Monitor labs and vitals. DVT and GI prophylaxis. Further recommendations as per clinical course of the patient Dictation was produced using [employer] software. please excuse any grammatical, word or spelling errors. Objective - Vital Signs Vital signs: Vital Signs Temp 98.2 F 07/19/24 07:22 Pulse 82 07/19/24 07:22 Resp 17 07/19/24 07:22 BP 147/85 07/19/24 07:22 Pulse Ox 97 07/19/24 07:22 FiO2 Intake & Output 07/18/24 07/19/24 07/19/24 18:59 06:59 18:59 Intake Total 1550 1080 Output Total 200 Balance 1350 1080 Weight 96.162 kg Intake: IV 700 Intake, IV Titration 850 Amount Piperacillin-Tazobactam 3 100 .375 gm In Sodium Chloride 0.9% 100 ml @ 25 mls/hr IVPB Q8H [facility] Rx#: [id number] Sodium Chloride 0.9% 1, 750 000 ml @ 150 mls/hr IV . Q6H40M [facility] Rx#:[id number] Oral 1080 Output: Estimated Blood Loss 200 Other: Voiding Method Toilet # Voids 3 - Labs CBC & Chem 7: 07/19/24 05:41 07/19/24 05:41 Labs: Abnormal Lab Results - Last 24 Hours (Table) 07/19/24 07/19/24 Range/Units 05:41 05:41 RBC 3.92 L (4.40-5.60) X 10*6/uL Hgb 11.7 L (13.0-17.0) g/dL Hct 35.2 L (39.6-50.0) % RDW 14.7 H (11.5-14.5) % Lymphocytes # 0.45 L (0.90-5.00) X 10*3/uL Eosinophils # 0 L (0.04-0.35) X 10*3/uL BUN/Creatinine Ratio 20.30 H (12.00-20.00) Ratio Glucose 161 H (70-110) mg/dL Calcium 8.2 L (8.7-10.3) mg/dL AST 356 H (14-35) U/L ALT 319 H (10-49) U/L Alkaline Phosphatase 773 H (41-126) U/L Total Protein 5.4 L (6.2-8.2) g/dL Albumin 3.2 L (3.8-4.9) g/dL Albumin/Globulin Ratio 1.45 L (1.60-3.17) Ratio
[2024-07-20 05:43] LABS: ALT 198 U/L (4-49); AST 103 U/L (17-59); African American GFR (CKD) >90 (>60 ml/min/1.73 sqM); Albumin 2.7 g/dL (3.5-5.0); Albumin/Globulin Ratio 1.1; Alkaline Phosphatase 474 U/L (38-126); Anion Gap 2 mmol/L; Blood Urea Nitrogen 16 mg/dL (9-20); Calcium 8.1 mg/dL (8.4-10.2); Carbon Dioxide 24 mmol/L (22-30); Chloride 113 mmol/L (98-107); Globulin 2.5 g/dL; Glucose 126 mg/dL (74-99); Non-African American GFR(CKD) >90 (>60 ml/min/1.73 sqM); Potassium 3.8 mmol/L (3.5-5.1); Sodium 139 mmol/L (137-145); Total Bilirubin 0.6 mg/dL (0.2-1.3); Total Protein 5.2 g/dL (6.3-8.2)
[2024-07-20 06:10] LABS: Glucose,Whole Blood 119 mg/dL (70-110)
[2024-07-20 06:21] LABS: HCT 33.9 % (39.0-53.0); HGB 11.4 gm/dL (13.0-17.5); MCH 31.3 pg (25.0-35.0); MCHC 33.6 g/dL (31.0-37.0); MCV 93.2 fL (80.0-100.0); Mean Platelet Volume 8.1; Platelet Count 305 k/uL (150-450); RBC 3.64 m/uL (4.30-5.90); RDW 15.5 % (11.5-15.5); WBC 7.4 k/uL (3.8-10.6)
[2024-07-20 08:20] VITALS: BP 165/91; PULSE 67; RESP 16; TEMP 97.7
--- NOTE | 2024-07-20 10:50 | P.DS ---
Providers Date of admission: 07/16/24 13:13 Expected date of discharge: 07/20/24 Attending physician: Mitch Melendez MD Consults: 07/15/24 09:14 Consult Physician Urgent Consulting Provider: Marcos Lanier Consult Reason/Comments: Gallstone pancreatitis Do you want consulting provider notified?: Yes Consult Physician Urgent Consulting Provider: Laura Pompa Consult Reason/Comments: Gallstone pancreatitis Do you want consulting provider notified?: Yes Primary care physician: Mitch Melendez MD Hospital Course: Discharge diagnoses; Abdominal pain, gallstone pancreatitis, in a patient with prior pancreatitis 1 year ago Leukocytosis secondary to the above, improving. Cholecystitis Transaminitis Colitis, ulcerative, maintained on Imuran History of portal vein thrombosis, on Eliquis Aortic stenosis, moderate Hypertension Hyperlipidemia Hospital course; This is a 63-year-old gentleman with past medical history significant for obesity, colitis-on Imuran, pancreatitis-last episode 1 year ago with unclear etiology, DVT, hypertension, hyperlipidemia, asthma, former nicotine dependence and multiple other medical issues presented to the ER with abdominal pain, nausea and vomiting. Patient reports started having nausea and vomiting Sunday afternoon around 4 PM, after consuming hamburger helper. Reports nausea and vomiting progressed developed significant abdominal pain and presented to the ER. Last bowel movement was on Sunday X2. Reports no further vomiting since admission. Denied sweats or chills. Denies fevers. Tmax 100.3, initially no leukocytosis, currently white count increased to 14.17, lactic acid within normal limits. On admission amylase 2289, lipase 16,378, T. bili 1.7, AST 371, ALT 425, alk phos 347.NPO,maintained on IV fluid hydration amylase decreased to 730 and lipase to 680, with T. bili within normal limits, AST 83, ALT 265 and alk phos 272 LFTs hemoglobin 13.7, platelets 265. INR 0.95. Renal function, electrolytes stable. UA negative.CT abdomen pelvis with contrast reports Small noncalcified gallstones in gallbladder with hepatic steatosis. Biliary tree is of normal caliber.edema of the pancreas with peripancreatic stranding compatible with acute pancreatitis. Focal calcification within the transverse duodenum seen on image 42 which could reflect a recently passed calcified gallstone. Gallbladder ultrasound reports CBD unable to be identified. cholelithiasis with hepatic steatosis. Evaluated by both GI and general surgery and patient was scheduled for ERCP. This morning patient had significant abdominal tenderness, and ERCP has been cancelled, scheduled for robotic cholecystectomy on Sunday. evaluated by cardiology, echo pending. 07/17/2024 showered this morning .reports less but persistent pain, diffuse, greatest in bilateral lower quadrant pain. LFTs continue to improve , lipase decreased to 109. Recently medicated for nausea. Continues on Zosyn, afebrile, WBC decreased to 11.79. Echo reported normal LV and systolic function, EF 55 to 60% , bicuspid aortic valve with moderate aortic stenosis mean gradient 25 mmHg, mild tricuspid regurgitation, pulmonary hypertension .denies chest pain, palp itations or shortness of breath. Maintaining O2 sats in the 90s on room air. 07/18/2024 reports significant improvement in abdominal pain, nearly subsided.NPO, scheduled for robotic cholecystectomy today. Tmax 100.3, WBC normalized. Renal function stable. LFTs continue trending down. Lipase normal, 278. 07/19. Patient seen and examined. Patient underwent laparoscopic cholecystectomy yesterday. Blood work done that showed sodium 140, potassium 4.1, BUN 20.3, creatinine 1, bilirubin 0.7, AST 356, ALT 319, alk phos 773 LFTs have trended up compared to yesterday, will monitor patient for 1 more day 07/20. Patient seen and examined. Patient LFTs have improved compared to yesterday. Statins have been discontinued, can be resumed in outpatient setting after normalization of LFTs. Antibiotics were discontinued. Outpatient follow- up with PCP PHYSICAL EXAMINATION: GENERAL: The patient is alert and oriented x3, not in any acute distress. Well developed, well nourished. HEENT: Pupils are round and equally reacting to light. EOMI. No scleral icterus. No conjunctival pallor. Normocephalic, atraumatic. No pharyngeal erythema. No thyromegaly. CARDIOVASCULAR: S1 and S2 present. No murmurs, rubs, or gallops. PULMONARY: Chest is clear to auscultation, no wheezing or crackles. ABDOMEN: Soft, nontender, nondistended, normoactive bowel sounds. Laparoscopic surgical incisions MUSCULOSKELETAL: No joint swelling or deformity. EXTREMITIES: No cyanosis, clubbing, or pedal edema. NEUROLOGICAL: Gross neurological examination did not reveal any focal deficits. SKIN: No rashes. Dictation was produced using [employer] dictation software. please excuse any grammatical, word or spelling errors. Patient Condition at Discharge: Good Plan - Discharge Summary Discharge Rx Participant: No New Discharge Prescriptions: Continue Multivitamins, Thera [Multivitamin (formulary)] 1 tab PO DAILY Magnesium Oxide [Magnesium] 500 mg PO DAILY Aspirin [[place] Aspirin EC] 81 mg PO DAILY Ascorbic Acid [Vitamin C] 500 mg PO DAILY Losartan [Cozaar] 25 mg PO DAILY azaTHIOprine [Imuran] 100 mg PO DAILY Famotidine [Pepcid] 20 - 40 mg PO DAILY Albuterol Sulfate [Albuterol Sulfate Hfa] 2 puff INHALATION RT-BID Discontinued Rosuvastatin [Crestor] 10 mg PO DAILY Discharge Medication List Albuterol Sulfate [Albuterol Sulfate Hfa] 2 puff INHALATION RT-BID 07/15/24 [History] Ascorbic Acid [Vitamin C] 500 mg PO DAILY 07/15/24 [History] Aspirin [[place] Aspirin EC] 81 mg PO DAILY 07/15/24 [History] Famotidine [Pepcid] 20 - 40 mg PO DAILY 07/15/24 [History] Losartan [Cozaar] 25 mg PO DAILY 07/15/24 [History] Magnesium Oxide [Magnesium] 500 mg PO DAILY 07/15/24 [History] Multivitamins, Thera [Multivitamin (formulary)] 1 tab PO DAILY 07/15/24 [History] azaTHIOprine [Imuran] 100 mg PO DAILY 07/15/24 [History] Follow up Appointment(s)/Referral(s): Mitch Melendez MD [Primary Care Provider] - 1-2 days Tanvir Younger DO [Medical Doctor] - 1 Week Discharge Disposition: HOME SELF-CARE
== END 2024-07-20 11:21 | disposition home or self-care (01) | DRG 417 ==
LOC: EC 05:53 → 6NMEDSUR 10:24 → OBSVTOIN 07-16 13:13
PROVIDERS: ADMIT Family Medicine; ATTEND Family Medicine
PROC: 8E0W4CZ Robotic Assisted Procedure of Trunk Region, Percutaneous Endoscopic Approach (ICD-10-PCS; 2024-07-18)
PROC: 0FT44ZZ Resection of Gallbladder, Percutaneous Endoscopic Approach (ICD-10-PCS; principal; 2024-07-18 07:30)
DX: K80.00 Calculus of gallbladder with acute cholecystitis without obstruction (principal); K85.10 Biliary acute pancreatitis without necrosis or infection; K51.90 Ulcerative colitis, unspecified, without complications; E78.5 Hyperlipidemia, unspecified; I10 Essential (primary) hypertension; I35.0 Nonrheumatic aortic (valve) stenosis; Q23.81 Bicuspid aortic valve; J45.909 Unspecified asthma, uncomplicated; Z87.891 Personal history of nicotine dependence; Z79.624 Long term (current) use of inhibitors of nucleotide synthesis; Z79.82 Long term (current) use of aspirin; Z79.899 Other long term (current) drug therapy
CPT/HCPCS: 36415; 74177; 76705; 80048; 80053; 80076; 81003; 82150; 82248; 83605; 83690; 83735; 85025; 85027; 85610; 88304; 93005; 93306; 94640; 94760; 96361; 96374; 96375; 96376; 99285

== ENCOUNTER → 2024-10-10 | Outpatient (CLI) | payer MEDICARE ==
[2024-10-10 15:41] LABS: Basophils # (A) 0.03 X 10*3/uL (0.00-0.10); Basophils % (A) 0.6 %; Eosinophils # (A) 0.17 X 10*3/uL (0.04-0.35); Eosinophils % (A) 3.4 %; HCT 43.1 % (39.6-50.0); HGB 14.9 g/dL (13.0-17.0); Lymphocytes # (A) 1.02 X 10*3/uL (0.90-5.00); Lymphocytes % (A) 20.4 %; MCH 30.5 pg (27.0-32.0); MCHC 34.6 g/dL (32.0-37.0); MCV 88.3 FL (80.0-97.0); Mean Platelet Volume 9.8 FL (9.5-12.2); NRBC Per 100 WBC 0 X 10*3/uL (0.00-0.01); Neutrophils # (A) 3.25 X 10*3/uL (1.80-7.70); Neutrophils % (A) 65.2 %; Platelet Count 285 X 10*3/uL (140-440); RBC 4.88 X 10*6/uL (4.40-5.60); RDW 13.7 % (11.5-14.5); WBC 4.99 X 10*3/uL (4.50-10.00)
[2024-10-10 16:38] LABS: Hepatitis B Surface Antigen Nonreactive (Nonreactive)
[2024-10-10 16:54] LABS: ALT 24 U/L (10-49); AST 25 U/L (14-35); Albumin 4.2 g/dL (3.8-4.9); Albumin/Globulin Ratio 1.68 Ratio (1.60-3.17); Alkaline Phosphatase 114 U/L (41-126); BUN/Creat Ratio 17.18 Ratio (12.00-20.00); Blood Urea Nitrogen 18.9 mg/dL (9.0-27.0); Calcium 9.6 mg/dL (8.7-10.3); Carbon Dioxide 22.9 mmol/L (21.6-31.8); Chloride 104 mmol/L (96-109); Globulin 2.5 g/dL (1.6-3.3); Glucose 109 mg/dL (70-110); Potassium 4.3 mmol/L (3.5-5.5); Sodium 139 mmol/L (135-145); Total Bilirubin 0.3 mg/dL (0.3-1.2); Total Protein 6.7 g/dL (6.2-8.2)
== END | disposition home or self-care (01) ==
LOC: LABWHC1 11:58
PROVIDERS: ATTEND Nurse Practitioner Family
DX: K51.30 Ulcerative (chronic) rectosigmoiditis without complications (principal)
CPT/HCPCS: 36415; 80053; 85025; 86480; 86704; 87340

== ENCOUNTER → 2025-05-05 | Outpatient (CLI) | payer MEDICARE ==
[2025-05-05 15:06] LABS: Basophils # (A) 0.05 X 10*3/uL (0.00-0.10); Basophils % (A) 0.8 %; Eosinophils # (A) 0.13 X 10*3/uL (0.04-0.35); Eosinophils % (A) 2.1 %; HCT 46.1 % (39.6-50.0); HGB 15.6 g/dL (13.0-17.0); Immature Grans, Automated 0.50 %; Lymphocytes # (A) 1.07 X 10*3/uL (0.90-5.00); Lymphocytes % (A) 17.2 %; MCH 30.9 pg (27.0-32.0); MCHC 33.8 g/dL (32.0-37.0); MCV 91.3 FL (80.0-97.0); Monocytes # (A) 0.59 X 10*3/uL (0.20-1.00); Monocytes % (A) 9.5 %; NRBC Per 100 WBC 0 X 10*3/uL (0.00-0.01); Neutrophils # (A) 4.36 X 10*3/uL (1.80-7.70); Neutrophils % (A) 69.9 %; Platelet Count 273 X 10*3/uL (140-440); RBC 5.05 X 10*6/uL (4.40-5.60); RDW 14.0 % (11.5-14.5); WBC 6.23 X 10*3/uL (4.50-10.00)
[2025-05-05 15:19] LABS: ALT 29 U/L (10-49); AST 24 U/L (14-35); Albumin 4.4 g/dL (3.8-4.9); Albumin/Globulin Ratio 1.91 Ratio (1.60-3.17); Alkaline Phosphatase 106 U/L (41-126); Anion Gap 11.20 mmol/L (4.00-12.00); BUN/Creat Ratio 15.31 Ratio (12.00-20.00); Blood Urea Nitrogen 19.9 mg/dL (9.0-27.0); Calcium 9.5 mg/dL (8.7-10.3); Carbon Dioxide 20.8 mmol/L (21.6-31.8); Chloride 109 mmol/L (96-109); Globulin 2.3 g/dL (1.6-3.3); Glucose 115 mg/dL (70-110); Potassium 4.6 mmol/L (3.5-5.5); Sodium 141 mmol/L (135-145); Total Protein 6.7 g/dL (6.2-8.2)
== END | disposition home or self-care (01) ==
LOC: LABWHC1 10:21
PROVIDERS: ATTEND Nurse Practitioner Family
DX: K51.30 Ulcerative (chronic) rectosigmoiditis without complications (principal)
CPT/HCPCS: 36415; 80053; 85025